=== PATIENT | female | born 1930 ===

== ENCOUNTER 2020-03-22 13:16 | Inpatient (IN) | payer MEDICARE, MEDICAID ==
[~2020-03-22 13:16] MED LIST: Iopamidol-370 76% 500 ML 1 ML ONE
[2020-03-22 13:50] LABS: #Basophils 0.1 thou/uL (0.0-0.2); #Lymphocytes 0.6 thou/uL (1.20-3.40); #Monocytes 0.5 thou/uL (0.11-0.59); #Neutrophils 13.1 thou/uL (1.40-6.50); %Basophils 0.4 % (0.0-1.0); %Eosinophils 0.1 % (0.0-10.0); %Lymphocytes 4.4 % (21.0-51.0); %Monocytes 3.2 % (0.0-10.0); Hemoglobin 10.9 g/dL (12.0-16.0); Mean Corpuscular HGB CONC 30.5 g/dL (32.0-36.0); Mean Corpuscular Hemoglobin 27.4 pg (27.0-31.0); Mean Corpuscular Volume 89.7 fL (78.0-98.0); Mean Platelet Volume 8.7 fL (7.4-10.4); Platelet Count 287 thou/uL (130-400); RBC Distribution Width 15.1 % (11.5-14.5); Red Blood Cell (RBC) Count 3.97 mill/uL (4.20-5.40); White Blood Cell (WBC) Count 14.2 thou/uL (4.8-10.8)
[2020-03-22 14:13] LABS: ALT (SGPT) 10 U/L (8-55); AST (SGOT) 20 U/L (5-34); Albumin 3.5 g/dL (3.4-4.8); Alkaline Phosphatase 72 U/L (40-110); Anion Gap 14 mmol/L (10-20); BUN (Urea Nitrogen) 20 mg/dL (9.8-20.1); Bilirubin, Total 0.9 mg/dL (0.2-1.2); Calc. Creatinine Clearance 0 mL/min (70-130); Calcium 9.8 mg/dL (7.8-10.44); Carbon Dioxide 28 mmol/L (23-31); Chloride 99 mmol/L (98-107); Globulin 3.5 g/dL (2.4-3.5); Glucose 85 mg/dL (83-110); Potassium 4.6 mmol/L (3.5-5.1); Sodium 136 mmol/L (136-145)
--- NOTE | 2020-03-22 14:18 | RAD ---
XR Chest 1 View Portable HISTORY: Fever COMPARISON: 01/18/2019 FINDINGS: The heart size is borderline but stable the aorta is tortuous. There are patchy opacities i n the right upper and midlung zones. No pneumothoraces or large effusions are seen. There are degenerative changes in the right shoulder joint. There are postop changes of median sternotomy. Ther e are postop changes in metallic hardware in the spine. IMPRESSION: Findings suspicious for right-sided pneumonia.
--- NOTE | 2020-03-22 14:21 | RAD ---
Exam: XR Tib Fib Lt Leg 2 View HISTORY: Fever, wound infection. Cellulitis. History of debridement. COMPARISON: None FINDINGS: There is diffuse osteopenia present. No fracture or dislocation is appreciated. Osteoarthritis is see n involving the knee. No osseous destruction is appreciated. Calcifications are seen in the subcutaneous soft tissues of the lower extremity. No other findings. IMPRESSION: 1. Osteopenia. 2. Osteoarthritis left knee. 3. No acute osseous abnormality. If there is concern for osteomyelitis, MRI with and without IV contr ast would be more sensitive study of choice for further evaluation. 4. Soft tissue calcifications.
[2020-03-22] MEDS ORDERED: Cefepime 2 GM VIAL ONE (14:30)
[2020-03-22] MEDS ORDERED: Vancomycin 1 GM/200 ML BAG ONE (14:53)
[2020-03-22 15:53] LABS: Bilirubin Negative (Negative); Blood, Urine Negative (Negative); Clarity Clear (Clear); Glucose, Urine (Dipstick) Normal (Negative); Ketone, Urine Negative (Negative); Leukocyte Negative Leu/uL (Negative); Nitrite Negative (Negative); Protein, Urine (Dipstick) Negative (Neg-Trace); Urobilinogen Normal mg/dL (Less than 2); pH, Urine 7.5 (5.0-9.0)
[2020-03-22 16:42] LABS: SARS-CoV-2 NAA Rapid Test Not Detected (NotDetected)
--- NOTE | 2020-03-22 18:27 | CT ---
CT PULMONARY ANGIOGRAM WITH IV CONTRAST AND 3D POSTPROCESSIN03/22/20 HISTORY: Shortness of breath. Tachypnea and fever and tachycardia. FINDINGS: There is good contrast opacification of the pulmonary artery vasculature without filling defects to s uggest pulmonary embolism. There are vascular calcifications. No evidence of thoracic aortic aneurysm or dissection is seen. No pleural or pericardial effusions are identified. There are chronic fibrotic changes in the lungs with a large bulla in the left lower lobe. No lobar c onsolidation or pneumothoraces are identified. There are degenerative changes in the spine. There are postop changes with metallic hardware in the spine. Upper abdominal tomograms demonstrate an indeter minate 2 cm exophytic mass arising from the right kidney. IMPRESSION: 1. No CT evidence of pulmonary embolism. 2. Right renal mass should be evaluated with ultrasound. POS: MATILDE
[2020-03-22] MEDS ORDERED: Ondansetron PF 4 MG/2 ML Vial IVP PRN (18:41)
[2020-03-22] MEDS ORDERED: Bisacodyl 5 MG TAB PO PRN (18:41)
--- NOTE | 2020-03-22 18:49 | PDOC.HHP ---
Hospitalist HPI Generalized weakness History of Present Illness: Patient is a pleasant 89-year-old lady who was seen in the emergency room on March 22, 2020. She is accompanied by her daughter, who was able to provide most of the history. Patient has chronic wound on the left lower extremity, for which she receives wound care. She was seen at wound care yesterday. She also receives home health. Today she had generalized weakness and was lethargic. No history of cough. She reportedly has a history of pulmonary fibrosis. In the emergency room, she was diagnosed with sepsis. Chest x-ray was suggestive of pneumonia. She has been referred to hospitalist service for further management. ED Course: BP: 147/80, MAP: 106, Pulse: 94, Resp: 28, Temp: 99.9 (Oral), O2 sat: 100 on (Room Air), Time: 03/22/2020 18:00. Allergies/Adverse Reactions: Allergy/AdvReac Type Severity Reaction Status Date / Time Penicillins Allergy Verified 03/22/20 18:41 Comments: Ventolin HFA WedMar 22, 2020 16:14 [place] [place] HFA aerosol inhaler : Strength - 90 mcg : INHALATION Patient Dose: Unknown. gabapentin WedMar 22, 2020 16:15 [place] [place] capsule : Strength - 300 mg : ORAL Patient Dose: 300 mg Oral once a day. hydroxychloroquine WedMar 22, 2020 16:27 [place] [place] tablet : Strength - 200 mg : ORAL Patient Dose: 1 tab(s) Oral once a day. Xarelto WedMar 22, 2020 16:27 [place] [place] tablet : Strength - 15 mg : ORAL Patient Dose: 15 mg Oral once a day. atorvastatin WedMar 22, 2020 16:28 [place] [place] tablet : Strength - 10 mg : ORAL Patient Dose: 10 mg Oral once a day (at bedtime). pantoprazole oral WedMar 22, 2020 16:28 [facility] [place] tablet,delayed release (DR/EC) : Strength - 40 mg : ORAL Patient Dose: 40 mg Oral once a day. losartan WedMar 22, 2020 16:29 [place] [place] tablet : Strength - 100 mg : ORAL Patient Dose: 100 mg Oral once a day. spironolactone WedMar 22, 2020 16:30 [place] [place] tablet : Strength - 25 mg : ORAL Patient Dose: 2 tab(s) Oral once a day. DULoxetine WedMar 22, 2020 16:30 [place] [place] capsule,delayed release(DR/EC) : Strength - 30 mg : ORAL Patient Dose: 30 mg Oral once a day. predniSONE WedMar 22, 2020 16:31 [place] [place] tablet : Strength - 5 mg : ORAL Patient Dose: 5 mg Oral once a day. HYDROcodone-acetaminophen WedMar 22, 2020 16:32 [place] [place] tablet : Strength - 10 mg-325 mg : ORAL Patient Dose: 1 tab(s) Oral every 8 hours PRN. Past History: Past medical history: Coronary artery disease, dyslipidemia, hypertension, pulmonary fibrosis and rheumatoid arthritis. Surgical history: Hip surgery, coronary artery bypass graft surgery and spinal surgery Social history: No history of tobacco use, alcohol use or recreational drug use Family history: No family history of premature coronary artery disease CODE STATUS: I discussed her CODE STATUS. She is DNR. Hospitalist HPI ROS Constitutional: reports: weakness Respiratory: reports: SOB with excertion. denies: cough, dry, shortness of breath, hemoptysis, pleuritic pain, sputum, wheezing Gastrointestinal: denies: nausea, vomiting, abdominal pain, diarrhea, constipation, melena, hematochezia Skin: reports: lesions All other systems reviewed; all pertinent +/- noted in HPI/Subj Hospitalist Exam General Appearance: awake alert Eye: anicteric sclera ENT: moist mucosa Neck: supple Heart: RRR Respiratory - other findings: Bilateral crackles Gastrointestinal: soft, non-tender Extremities: no cyanosis Skin - other findings: Leg wounds as documented Psychiatric: normal affect, normal behavior Hospitalist Results Result Diagrams: 03/22/20 13:33 03/22/20 13:33 Lab results: Laboratory Last Values WBC 14.2 thou/uL (4.8-10.8) H 03/22/20 13:33 RBC 3.97 mill/uL (4.20-5.40) L 03/22/20 13:33 Hgb 10.9 g/dL (12.0-16.0) L 03/22/20 13:33 Hct 35.6 % (36.0-47.0) L 03/22/20 13:33 MCV 89.7 fL (78.0-98.0) 03/22/20 13:33 MCH 27.4 pg (27.0-31.0) 03/22/20 13:33 MCHC 30.5 g/dL (32.0-36.0) L 03/22/20 13:33 RDW 15.1 % (11.5-14.5) H 03/22/20 13:33 Plt Count 287 thou/uL (130-400) 03/22/20 13:33 MPV 8.7 fL (7.4-10.4) 03/22/20 13:33 Neutrophils % 92.0 % (42.0-75.0) H 03/22/20 13:33 Lymphocytes % 4.4 % (21.0-51.0) L 03/22/20 13:33 Monocytes % 3.2 % (0.0-10.0) 03/22/20 13:33 Eosinophils % 0.1 % (0.0-10.0) 03/22/20 13:33 Basophils % 0.4 % (0.0-1.0) 03/22/20 13:33 Neutrophils # 13.1 thou/uL (1.40-6.50) H 03/22/20 13:33 Lymphocytes # 0.6 thou/uL (1.20-3.40) L 03/22/20 13:33 Monocytes # 0.5 thou/uL (0.11-0.59) 03/22/20 13:33 Eosinophils # 0.0 thou/uL (0.0-0.7) 03/22/20 13:33 Basophils # 0.1 thou/uL (0.0-0.2) 03/22/20 13:33 Sodium 136 mmol/L (136-145) 03/22/20 13:33 Potassium 4.6 mmol/L (3.5-5.1) 03/22/20 13:33 Chloride 99 mmol/L (98-107) 03/22/20 13:33 Carbon Dioxide 28 mmol/L (23-31) 03/22/20 13:33 Anion Gap 14 mmol/L (10-20) 03/22/20 13:33 BUN 20 mg/dL (9.8-20.1) 03/22/20 13:33 Creatinine 0.79 mg/dL (0.6-1.1) 03/22/20 13:33 Estimated GFR (MDRD) 69 03/22/20 13:33 Glucose 85 mg/dL (83-110) 03/22/20 13:33 Lactic Acid 1.5 mmol/L (0.5-2.2) 03/22/20 13:33 Calcium 9.8 mg/dL (7.8-10.44) 03/22/20 13:33 Total Bilirubin 0.9 mg/dL (0.2-1.2) 03/22/20 13:33 AST 20 U/L (5-34) 03/22/20 13:33 ALT 10 U/L (8-55) 03/22/20 13:33 Alkaline Phosphatase 72 U/L (40-110) 03/22/20 13:33 Serum Total Protein 7.0 g/dL (5.8-8.1) 03/22/20 13:33 Albumin 3.5 g/dL (3.4-4.8) 03/22/20 13:33 Globulin 3.5 g/dL (2.4-3.5) 03/22/20 13:33 Albumin/Globulin Ratio 1.0 g/dL (1.2-2.2) L 03/22/20 13:33 Urine Color Colorless (Yellow) 03/22/20 15:13 Urine Clarity Clear (Clear) 03/22/20 15:13 Urine pH 7.5 (5.0-9.0) 03/22/20 15:13 Ur Specific [place] 1.010 (1.002-1.036) 03/22/20 15:13 Urine Protein Negative mg/dL (Neg-Trace) 03/22/20 15:13 Urine Glucose (UA) Normal mg/dL (Negative) 03/22/20 15:13 Urine Ketones Negative mg/dL (Negative) 03/22/20 15:13 Urine Blood Negative (Negative) 03/22/20 15:13 Urine Nitrite Negative (Negative) 03/22/20 15:13 Urine Bilirubin Negative (Negative) 03/22/20 15:13 Urine Urobilinogen Normal mg/dL (Less than 2) 03/22/20 15:13 Ur Leukocyte Esterase Negative Marquis/uL (Negative) 03/22/20 15:13 Influenza A RNA INAAT Not Detected (NotDetected) 03/22/20 15:15 Influenza B RNA INAAT Not Detected (NotDetected) 03/22/20 15:15 SARS-CoV-2 Rap RNA(RT-PCR) Not Detected (NotDetected) 03/22/20 15:15 Chest x-ray Additional Comments: XR Chest 1 View Portable HISTORY: Fever COMPARISON: 01/18/2019 FINDINGS: The heart size is borderline but stable the aorta is tortuous. There are patchy opacities i n the right upper and midlung zones. No pneumothoraces or large effusions are seen. There are degenerative changes in the right shoulder joint. There are postop changes of median sternotomy. Ther e are postop changes in metallic hardware in the spine. IMPRESSION: Findings suspicious for right-sided pneumonia. Other Additional Comments: HISTORY: Fever, wound infection. Cellulitis. History of debridement. COMPARISON: None FINDINGS: There is diffuse osteopenia present. No fracture or dislocation is appreciated. Osteoarthritis is see n involving the knee. No osseous destruction is appreciated. Calcifications are seen in the subcutaneous soft tissues of the lower extremity. No other findings. IMPRESSION: 1. Osteopenia. 2. Osteoarthritis left knee. 3. No acute osseous abnormality. If there is concern for osteomyelitis, MRI with and without IV contr ast would be more sensitive study of choice for further evaluation. 4. Soft tissue calcifications. Hospitalist H&P A/P (1) Sepsis Code(s): A41.9 - SEPSIS, UNSPECIFIED ORGANISM Status: Acute (2) Pneumonia Code(s): J18.9 - PNEUMONIA, UNSPECIFIED ORGANISM Status: Acute (3) Wound infection Code(s): T14.8XXA - OTHER INJURY OF UNSPECIFIED BODY REGION, INITIAL ENCOUNTER; L08.9 - LOCAL INFECTION OF THE SKIN AND SUBCUTANEOUS TISSUE, UNSP Status: Acute (4) Coronary artery disease Code(s): I25.10 - ATHSCL HEART DISEASE OF [place] CORONARY ARTERY W/O ANG PCTRS Status: Chronic (5) Hypertension Code(s): I10 - ESSENTIAL (PRIMARY) HYPERTENSION Status: Chronic (6) Dyslipidemia Code(s): E78.5 - HYPERLIPIDEMIA, UNSPECIFIED Status: Chronic Plan: Continue cefepime and vancomycin. Follow cultures. Resume home medications once clarified. Monitor vital signs and titrate antihypertensives as needed. CT angiogram of the chest is pending, follow result. Consult wound care for wound management. Consult PT.
[2020-03-22] MEDS ORDERED: Morphine 2 MG/ML VIAL SLOW IVP PRN (22:27)
[2020-03-22] MEDS ORDERED: Albuterol Sulfate 2.5 mg/3 ml Neb NEB PRN (22:30)
[2020-03-22] MEDS: HYDROcodone/Acetaminophen 10/325 mg Tablet PO PRN (23:35)
[2020-03-23 06:12] LABS: #Lymphocytes 0.6 thou/uL (1.20-3.40); #Monocytes 0.2 thou/uL (0.11-0.59); #Neutrophils 8.2 thou/uL (1.40-6.50); %Basophils 0.3 % (0.0-1.0); %Eosinophils 0.4 % (0.0-10.0); %Lymphocytes 6.3 % (21.0-51.0); %Monocytes 2.1 % (0.0-10.0); %Neutrophils 90.9 % (42.0-75.0); Mean Corpuscular HGB CONC 31.1 g/dL (32.0-36.0); Mean Corpuscular Hemoglobin 27.9 pg (27.0-31.0); Mean Corpuscular Volume 89.8 fL (78.0-98.0); Mean Platelet Volume 8.8 fL (7.4-10.4); Platelet Count 222 thou/uL (130-400); RBC Distribution Width 15.2 % (11.5-14.5); Red Blood Cell (RBC) Count 3.58 mill/uL (4.20-5.40)
[2020-03-23 06:30] LABS: Anion Gap 14 mmol/L (10-20); BUN (Urea Nitrogen) 21 mg/dL (9.8-20.1); Calc. Creatinine Clearance 46 mL/min (70-130); Calcium 8.8 mg/dL (7.8-10.44); Carbon Dioxide 22 mmol/L (23-31); Chloride 103 mmol/L (98-107); Glucose 62 mg/dL (83-110); Potassium 3.9 mmol/L (3.5-5.1); Sodium 135 mmol/L (136-145)
[2020-03-23] MEDS: Vancomycin HCl 750 MG in Sodium Chloride 0.9% 250 ML 250 ML IVPB SCH (08:08)
[2020-03-23] MEDS ORDERED: Enoxaparin Sodium 40 MG/0.4 ML SYRINGE SC SCH (09:00)
[2020-03-23] MEDS: Cefepime 2 GM in Sodium Chloride 0.9% 100 ML IVPB SCH (14:16)
--- NOTE | 2020-03-23 16:37 | ULT ---
ULTRASOUND RETROPERITONEUM COMPLETE: (RENAL) DATE: 03/23/2020 HISTORY: 89-year-old female with right renal mass found on CT pulmonary angiogram yesterday FINDINGS: The right kidney measures 10 x 4.5 x 4 cm The left kidney measures 9.5 x 4.5 x 3 cm Both kidneys have normal parenchymal echogenicity. There is no hydronephrosis. There is a 2 x 2 x 2.2 cm exophytic pedunculated cyst arising from the cortical surface of right rivas l mid-upper pole, corresponding to the mass seen on chest CTA. Cursory images of the urinary bladder demonstrate no gross abnormality. IMPRESSION: 1. The right renal mass is a cyst. 2. Otherwise negative.
[2020-03-23] MEDS: Sodium Chloride 0.9% 1,000 ML IV SCH (16:50)
[2020-03-23] MEDS: Morphine 2 MG/ML VIAL SLOW IVP PRN (17:40)
--- NOTE | 2020-03-23 18:36 | PDOC.HOSPP ---
- Subjective Encounter Date: 03/23/20 Encounter Time: 11:30 Subjective: Patient seen in follow-up for sepsis. Reports feeling better. - Objective Vital Signs & Weight: Vital Signs (12 hours) Temp Pulse Resp BP BP Pulse Ox 03/23/20 12:00 98.2 F 74 20 165/66 H 99 03/23/20 08:00 97 03/23/20 07:57 97.9 F 72 18 159/68 H 97 Weight Admit Weight 116 lb 2 oz Weight 116 lb 2 oz Result Diagrams: 03/23/20 06:02 03/23/20 06:02 Additional Labs: I reviewed patient's labs and MAR Hospitalist ROS - Review of Systems Respiratory: reports: cough, dry Cardiovascular: denies: chest pain, palpitations, orthopnea, paroxysmal noc. dyspnea, edema, light headedness Gastrointestinal: denies: nausea, vomiting, abdominal pain, diarrhea, constipation, melena, hematochezia - Medication Medications: Active Medications Generic Name Dose Route Start Last Admin Trade Name Freq PRN Reason Stop Dose Admin Hydrocodone Bitart/Acetaminophen 1 tab 03/22/20 22:26 03/22/20 23:35 Hydrocodone/Acetaminophen 10/325 Mg Tablet PO 1 tab TID PRN Administration Pain Albuterol/Ipratropium 3 ml 03/22/20 22:26 03/22/20 23:35 Ipratropium/Albuterol Sulfate 3 Ml Neb NEB 3 ml [id number] PRN Administration SOB &/or Wheezing Vancomycin HCl 750 mg/ Sodium 250 mls @ 250 mls/hr 03/23/20 09:00 03/23/20 08:08 Chloride IVPB 250 mls Q24HR@0900 CARMEL Administration Cefepime HCl 2 gm/ Sodium 100 mls @ 200 mls/hr 03/23/20 14:00 03/23/20 14:16 Chloride IVPB 100 mls Q24HR@1400 CARMEL Administration Sodium Chloride 1,000 mls @ 50 mls/hr 03/23/20 15:45 03/23/20 16:50 Normal Saline 0.9% IV 1,000 mls .Q20H CARMEL Administration Morphine Sulfate 2 mg 03/23/20 10:44 03/23/20 17:40 Morphine 2 Mg/Ml Vial SLOW IVP 2 mg Q4H PRN Administration Pain Ondansetron HCl 4 mg 03/22/20 18:41 03/23/20 17:58 Ondansetron Pf 4 Mg/2 Ml Vial IVP 4 mg Q6H PRN Administration Nausea/Vomiting Sodium Chloride 10 ml 03/23/20 09:00 03/23/20 08:08 Flush - Normal Saline 10 Ml Syringe IVF 10 ml Q12HR CARMEL Administration Hospitalist Exam Vitals: Vital Signs (12 hours) Temp Pulse Resp BP BP Pulse Ox 03/23/20 12:00 98.2 F 74 20 165/66 H 99 03/23/20 08:00 97 03/23/20 07:57 97.9 F 72 18 159/68 H 97 Weight Admit Weight 116 lb 2 oz Weight 116 lb 2 oz General Appearance: NAD Eye: anicteric sclera ENT: normocephalic atraumatic Neck: supple Heart: RRR Respiratory - other findings: Bibasal crackles Gastrointestinal: soft, non-tender Skin: no rashes Psychiatric: normal affect, normal behavior Hosp A/P (1) Sepsis Code(s): A41.9 - SEPSIS, UNSPECIFIED ORGANISM Status: Acute (2) Pneumonia Code(s): J18.9 - PNEUMONIA, UNSPECIFIED ORGANISM Status: Acute (3) Wound infection Code(s): T14.8XXA - OTHER INJURY OF UNSPECIFIED BODY REGION, INITIAL ENCOUNTER; L08.9 - LOCAL INFECTION OF THE SKIN AND SUBCUTANEOUS TISSUE, UNSP Status: Acute (4) Coronary artery disease Code(s): I25.10 - ATHSCL HEART DISEASE OF [place] CORONARY ARTERY W/O ANG PCTRS Status: Chronic (5) Hypertension Code(s): I10 - ESSENTIAL (PRIMARY) HYPERTENSION Status: Chronic (6) Dyslipidemia Code(s): E78.5 - HYPERLIPIDEMIA, UNSPECIFIED Status: Chronic - Plan Continue cefepime and vancomycin. Follow cultures. Patient resumed. Monitor vital signs and titrate antihypertensives as needed. CT scan of chest shows renal mass, check renal ultrasound. Consulted wound care for wound management. PT consulted
[2020-03-23] MEDS: hydrALAZINE 20 MG/ML VIAL SLOW IVP PRN (21:00)
[2020-03-23] MEDS: Gabapentin 300 MG CAP PO SCH (21:04)
[2020-03-23] MEDS: Atorvastatin Calcium 10 MG TAB PO SCH (21:04)
[2020-03-23] MEDS: Spironolactone 25 MG TAB PO SCH ×2 (21:05→22:28)
[2020-03-23] MEDS: Hydroxychloroquine Sulfate 200 MG TAB PO SCH (21:05)
[2020-03-23] MEDS: HYDROcodone/Acetaminophen 10/325 mg Tablet PO PRN (21:43)
[2020-03-24] MEDS ORDERED: Amlodipine 5 MG TAB PO SCH (00:15)
[2020-03-24] MEDS: hydrALAZINE 20 MG/ML VIAL SLOW IVP PRN (05:44)
[2020-03-24 07:02] LABS: #Eosinphils 0.1 thou/uL (0.0-0.7); #Lymphocytes 1.1 thou/uL (1.20-3.40); #Monocytes 0.4 thou/uL (0.11-0.59); #Neutrophils 5.6 thou/uL (1.40-6.50); %Basophils 0.1 % (0.0-1.0); %Eosinophils 0.8 % (0.0-10.0); %Lymphocytes 15.2 % (21.0-51.0); %Monocytes 5.1 % (0.0-10.0); %Neutrophils 78.9 % (42.0-75.0); Hemoglobin 11.8 g/dL (12.0-16.0); Mean Corpuscular HGB CONC 29.9 g/dL (32.0-36.0); Mean Corpuscular Hemoglobin 26.9 pg (27.0-31.0); Mean Corpuscular Volume 89.9 fL (78.0-98.0); Mean Platelet Volume 9.2 fL (7.4-10.4); Platelet Count 233 thou/uL (130-400); RBC Distribution Width 15.2 % (11.5-14.5); White Blood Cell (WBC) Count 7.2 thou/uL (4.8-10.8)
[2020-03-24 07:18] LABS: Anion Gap 19 mmol/L (10-20); BUN (Urea Nitrogen) 15 mg/dL (9.8-20.1); Calc. Creatinine Clearance 55 mL/min (70-130); Calcium 9.1 mg/dL (7.8-10.44); Carbon Dioxide 17 mmol/L (23-31); Chloride 105 mmol/L (98-107); Sodium 137 mmol/L (136-145)
[2020-03-24 07:23] LABS: Glucose 57 mg/dL (83-110)
[2020-03-24 08:13] LABS: Vancomycin, Trough 16.3 ug/mL
[2020-03-24] MEDS: Losartan 25 MG TAB PO SCH (08:33)
[2020-03-24] MEDS: Fish Oil 1,000 MG CAP PO SCH (08:33)
[2020-03-24] MEDS: Ascorbic Acid 500 mg Chewable Tablet PO SCH (08:33)
[2020-03-24] MEDS: Calcium Carbonate 600 MG + Vit D TAB PO SCH (08:33)
[2020-03-24] MEDS: DULoxetine 30 MG CAP PO SCH (08:33)
[2020-03-24] MEDS: Cyanocobalamin (Vitamin B-12) 1,000 MCG TAB PO SCH (08:33)
[2020-03-24] MEDS: Magnesium Oxide 400 MG TAB PO SCH (08:34)
[2020-03-24] MEDS: Rivaroxaban 15 MG TAB PO SCH (08:34)
[2020-03-24] MEDS: Spironolactone 25 MG TAB PO SCH ×2 (08:35→20:25)
[2020-03-24] MEDS: Vancomycin HCl 750 MG in Sodium Chloride 0.9% 250 ML 250 ML IVPB SCH (10:29)
[2020-03-24] MEDS: Sodium Chloride 0.9% 1,000 ML IV SCH (11:59)
--- NOTE | 2020-03-24 13:00 | PDOC.HOSPP ---
- Subjective Encounter Date: 03/24/20 Encounter Time: 09:00 Subjective: Seen for follow-up regarding hypoxic respiratory failure. Feels better today. - Objective Vital Signs & Weight: Vital Signs (12 hours) Temp Pulse Resp BP BP BP Pulse Ox 03/24/20 07:40 97.5 F L 103 H 154/77 H 99 03/24/20 06:29 78 167/75 H 03/24/20 05:44 94 185/80 H 03/24/20 05:43 97.5 F L 94 18 185/80 H 98 03/24/20 01:00 94 173/86 H Weight Admit Weight 116 lb 2 oz Weight 116 lb 2 oz I&O: 03/23/20 03/24/20 03/25/20 06:59 06:59 06:59 Output Total 1000 Balance -1000 Result Diagrams: 03/24/20 06:50 03/24/20 06:50 Additional Labs: Accuchecks 03/24/20 08:12 POC Glucose 106 H Labs and MAR reviewed by nd Hospitalist ROS - Review of Systems Respiratory: reports: cough, dry Cardiovascular: denies: chest pain, palpitations, orthopnea, paroxysmal noc. dyspnea, edema, light headedness Gastrointestinal: denies: nausea, vomiting, abdominal pain, diarrhea, constipation, melena, hematochezia - Medication Medications: Active Medications Generic Name Dose Route Start Last Admin Trade Name Freq PRN Reason Stop Dose Admin Hydrocodone Bitart/Acetaminophen 1 tab 03/22/20 22:26 03/23/20 21:43 Hydrocodone/Acetaminophen 10/325 Mg Tablet PO 1 tab TID PRN Administration Pain Albuterol/Ipratropium 3 ml 03/22/20 22:26 03/22/20 23:35 Ipratropium/Albuterol Sulfate 3 Ml Neb NEB 3 ml [id number] PRN Administration SOB &/or Wheezing Ascorbic Acid 500 mg 03/24/20 09:00 03/24/20 08:33 Ascorbic Acid 500 Mg Chewable Tablet PO Not Given DAILY CARMEL Atorvastatin Calcium 5 mg 03/23/20 21:00 03/23/20 21:04 Atorvastatin Calcium 10 Mg Tab PO Not Given HS CARMEL Calcium/Vitamin D 1 tab 03/24/20 09:00 03/24/20 08:33 Calcium Carbonate 600 Mg + Vit D Tab PO Not Given DAILY [facility] Cyanocobalamin 1,000 mcg 03/24/20 09:00 03/24/20 08:33 Cyanocobalamin (Vitamin B-12) 1,000 Mcg Tab PO Not Given DAILY [facility] Duloxetine HCl 30 mg 03/24/20 09:00 03/24/20 08:33 Duloxetine 30 Mg Cap PO Not Given DAILY [facility] Fish Oil 1,000 mg 03/24/20 09:00 03/24/20 08:33 Fish Oil 1,000 Mg Cap PO Not Given DAILY [facility] Gabapentin 300 mg 03/23/20 21:00 03/23/20 21:04 Gabapentin 300 Mg Cap PO Not Given HS CARMEL Hydralazine HCl 10 mg 03/23/20 18:50 03/24/20 05:44 Hydralazine 20 Mg/Ml Vial SLOW IVP 10 mg Q6H PRN Administration SBP Greater Than 170 Hydroxychloroquine Sulfate 200 mg 03/23/20 21:00 03/23/20 21:05 Hydroxychloroquine Sulfate 200 Mg Tab PO Not Given HS CARMEL Vancomycin HCl 750 mg/ Sodium 250 mls @ 250 mls/hr 03/23/20 09:00 03/24/20 10:29 Chloride IVPB 250 mls Q24HR@0900 [facility]MEL Administration Cefepime HCl 2 gm/ Sodium 100 mls @ 200 mls/hr 03/23/20 14:00 03/23/20 14:16 Chloride IVPB 100 mls Q24HR@1400 [facility]MEL Administration Sodium Chloride 1,000 mls @ 50 mls/hr 03/23/20 15:45 03/24/20 11:59 Normal Saline 0.9% IV 1,000 mls .Q20H [facility]MEL Administration Losartan Potassium 100 mg 03/24/20 09:00 03/24/20 08:33 Losartan 25 Mg Tab PO Not Given DAILY [facility] Magnesium Oxide 400 mg 03/24/20 09:00 03/24/20 08:34 Magnesium Oxide 400 Mg Tab PO Not Given DAILY [facility] Morphine Sulfate 2 mg 03/23/20 10:44 03/23/20 17:40 Morphine 2 Mg/Ml Vial SLOW IVP 2 mg Q4H PRN Administration Pain Ondansetron HCl 4 mg 03/22/20 18:41 03/23/20 17:58 Ondansetron Pf 4 Mg/2 Ml Vial IVP 4 mg Q6H PRN Administration Nausea/Vomiting Pantoprazole Sodium 40 mg 03/24/20 09:00 03/24/20 08:34 Pantoprazole 40 Mg Tab PO Not Given DAILY [facility] Rivaroxaban 15 mg 03/24/20 09:00 03/24/20 08:34 Rivaroxaban 15 Mg Tab PO Not Given Q2DAYS [facility] Sodium Chloride 10 ml 03/23/20 09:00 03/24/20 08:35 Flush - Normal Saline 10 Ml Syringe IVF Not Given Q12HR [facility] Spironolactone 25 mg 03/23/20 21:00 03/24/20 08:35 Spironolactone 25 Mg Tab PO Not Given BID [facility] Hospitalist Exam Vitals: Vital Signs (12 hours) Temp Pulse Resp BP BP BP Pulse Ox 03/24/20 07:40 97.5 F L 103 H 154/77 H 99 03/24/20 06:29 78 167/75 H 03/24/20 05:44 94 185/80 H 03/24/20 05:43 97.5 F L 94 18 185/80 H 98 03/24/20 01:00 94 173/86 H Weight Admit Weight 116 lb 2 oz Weight 116 lb 2 oz General Appearance: awake alert ENT: normocephalic atraumatic Heart: RRR Respiratory: rhonchi Gastrointestinal: soft, non-tender Skin: no rashes Psychiatric: normal affect, normal behavior Hosp A/P (1) Acute respiratory failure with hypoxia Code(s): J96.01 - ACUTE RESPIRATORY FAILURE WITH HYPOXIA Status: Acute (2) Sepsis Code(s): A41.9 - SEPSIS, UNSPECIFIED ORGANISM Status: Acute (3) Pneumonia Code(s): J18.9 - PNEUMONIA, UNSPECIFIED ORGANISM Status: Acute (4) Wound infection Code(s): T14.8XXA - OTHER INJURY OF UNSPECIFIED BODY REGION, INITIAL ENCOUNTER; L08.9 - LOCAL INFECTION OF THE SKIN AND SUBCUTANEOUS TISSUE, UNSP Status: Acute (5) Coronary artery disease Code(s): I25.10 - ATHSCL HEART DISEASE OF [place] CORONARY ARTERY W/O ANG PCTRS Status: Chronic (6) Hypertension Code(s): I10 - ESSENTIAL (PRIMARY) HYPERTENSION Status: Chronic (7) Dyslipidemia Code(s): E78.5 - HYPERLIPIDEMIA, UNSPECIFIED Status: Chronic - Plan Continue cefepime and vancomycin. Follow cultures. Patient resumed. Monitor vital signs and titrate antihypertensives as needed. Renal ultrasound showed renal cyst on the left side. wound care for wound management. PT consulted
[2020-03-24] MEDS: HYDROcodone/Acetaminophen 10/325 mg Tablet PO PRN (13:06)
[2020-03-24] MEDS: Cefepime 2 GM in Sodium Chloride 0.9% 100 ML IVPB SCH (13:08)
[2020-03-24] MEDS ORDERED: guaiFENesin/DM ER PO SCH ×2 (14:45→21:00)
[2020-03-24] MEDS ORDERED: guaiFENesin ER 600 MG TAB PO SCH ×2 (16:15→21:00)
[2020-03-24] MEDS ORDERED: GUAIFENESIN SF SOLN 200 MG/10 ML UDCUP PO PRN (16:40)
[2020-03-24] MEDS: Atorvastatin Calcium 10 MG TAB PO SCH (20:25)
[2020-03-24] MEDS: Gabapentin 300 MG CAP PO SCH (20:26)
[2020-03-24] MEDS: Hydroxychloroquine Sulfate 200 MG TAB PO SCH (20:26)
[2020-03-25] MEDS: DULoxetine 30 MG CAP PO SCH (08:20)
[2020-03-25] MEDS: Ascorbic Acid 500 mg Chewable Tablet PO SCH (08:20)
[2020-03-25] MEDS: Losartan 25 MG TAB PO SCH (08:20)
[2020-03-25] MEDS: Cyanocobalamin (Vitamin B-12) 1,000 MCG TAB PO SCH (08:21)
[2020-03-25] MEDS: Sodium Chloride 0.9% 1,000 ML IV SCH (08:21)
[2020-03-25] MEDS: Spironolactone 25 MG TAB PO SCH ×2 (08:21→20:45)
[2020-03-25] MEDS: Magnesium Oxide 400 MG TAB PO SCH (08:21)
[2020-03-25] MEDS: Calcium Carbonate 600 MG + Vit D TAB PO SCH (08:21)
[2020-03-25] MEDS: Fish Oil 1,000 MG CAP PO SCH (08:21)
[2020-03-25] MEDS: Vancomycin HCl 750 MG in Sodium Chloride 0.9% 250 ML 250 ML IVPB SCH (09:58)
[2020-03-25 10:41] LABS: #Eosinphils 0.1 thou/uL (0.0-0.7); #Lymphocytes 0.9 thou/uL (1.20-3.40); #Monocytes 0.5 thou/uL (0.11-0.59); #Neutrophils 6.5 thou/uL (1.40-6.50); %Basophils 0.1 % (0.0-1.0); %Eosinophils 1.1 % (0.0-10.0); %Lymphocytes 11.7 % (21.0-51.0); %Monocytes 5.8 % (0.0-10.0); %Neutrophils 81.2 % (42.0-75.0); Hemoglobin 10.7 g/dL (12.0-16.0); Mean Corpuscular HGB CONC 31.8 g/dL (32.0-36.0); Mean Corpuscular Hemoglobin 28.8 pg (27.0-31.0); Mean Corpuscular Volume 90.6 fL (78.0-98.0); Platelet Count 232 thou/uL (130-400); RBC Distribution Width 15.1 % (11.5-14.5); Red Blood Cell (RBC) Count 3.73 mill/uL (4.20-5.40)
[2020-03-25 11:00] LABS: Anion Gap 11 mmol/L (10-20); BUN (Urea Nitrogen) 11 mg/dL (9.8-20.1); Calc. Creatinine Clearance 49 mL/min (70-130); Calcium 8.6 mg/dL (7.8-10.44); Carbon Dioxide 24 mmol/L (23-31); Chloride 108 mmol/L (98-107); Glucose 126 mg/dL (83-110); Potassium 3.6 mmol/L (3.5-5.1); Sodium 139 mmol/L (136-145)
[2020-03-25] MEDS: Cefepime 2 GM in Sodium Chloride 0.9% 100 ML IVPB SCH (14:34)
--- NOTE | 2020-03-25 17:04 | PDOC.HOSPP ---
- Subjective Encounter Date: 03/25/20 Encounter Time: 07:00 Subjective: Patient seen for follow-up for respiratory failure. Reports feeling better. - Objective Vital Signs & Weight: Vital Signs (12 hours) Temp Pulse Resp BP Pulse Ox 03/25/20 16:00 97.9 F 82 18 138/82 99 03/25/20 08:00 97.6 F 78 18 165/81 H 99 Weight Admit Weight 116 lb 2 oz Weight 116 lb 2 oz I&O: 03/24/20 03/25/20 03/26/20 06:59 06:59 06:59 Output Total 1000 Balance -1000 Result Diagrams: 03/25/20 10:22 03/25/20 10:22 Additional Labs: I reviewed patient's labs and MAR Hospitalist ROS - Review of Systems Respiratory: reports: cough, dry Gastrointestinal: denies: nausea, vomiting, abdominal pain, diarrhea, constipation, melena, hematochezia Genitourinary: denies: dysuria, frequency, incontinence, hematuria, retention - Medication Medications: Active Medications Generic Name Dose Route Start Last Admin Trade Name Freq PRN Reason Stop Dose Admin Hydrocodone Bitart/Acetaminophen 1 tab 03/22/20 22:26 03/24/20 13:06 Hydrocodone/Acetaminophen 10/325 Mg Tablet PO 1 tab TID PRN Administration Pain Albuterol/Ipratropium 3 ml 03/22/20 22:26 03/22/20 23:35 Ipratropium/Albuterol Sulfate 3 Ml Neb NEB 3 ml [id number] PRN Administration SOB &/or Wheezing Ascorbic Acid 500 mg 03/24/20 09:00 03/25/20 08:20 Ascorbic Acid 500 Mg Chewable Tablet PO 500 mg DAILY CARMEL Administration Atorvastatin Calcium 5 mg 03/23/20 21:00 03/24/20 20:25 Atorvastatin Calcium 10 Mg Tab PO 5 mg HS CARMEL Administration Calcium/Vitamin D 1 tab 03/24/20 09:00 03/25/20 08:21 Calcium Carbonate 600 Mg + Vit D Tab PO 1 tab DAILY CARMEL Administration Cyanocobalamin 1,000 mcg 03/24/20 09:00 03/25/20 08:21 Cyanocobalamin (Vitamin B-12) 1,000 Mcg Tab PO 1,000 mcg DAILY CARMEL Administration Duloxetine HCl 30 mg 03/24/20 09:00 03/25/20 08:20 Duloxetine 30 Mg Cap PO 30 mg DAILY CARMEL Administration Fish Oil 1,000 mg 03/24/20 09:00 03/25/20 08:21 Fish Oil 1,000 Mg Cap PO 1,000 mg DAILY CARMEL Administration Gabapentin 300 mg 03/23/20 21:00 03/24/20 20:26 Gabapentin 300 Mg Cap PO 300 mg HS CARMEL Administration Guaifenesin 600 mg 03/24/20 16:40 03/24/20 17:38 Guaifenesin Sf Soln 200 Mg/10 Ml Udcup PO 600 mg Q12H PRN Administration Cough Hydralazine HCl 10 mg 03/23/20 18:50 03/24/20 05:44 Hydralazine 20 Mg/Ml Vial SLOW IVP 10 mg Q6H PRN Administration SBP Greater Than 170 Hydroxychloroquine Sulfate 200 mg 03/23/20 21:00 03/24/20 20:26 Hydroxychloroquine Sulfate 200 Mg Tab PO 200 mg HS CARMEL Administration Vancomycin HCl 750 mg/ Sodium 250 mls @ 250 mls/hr 03/23/20 09:00 03/25/20 09:58 Chloride IVPB 250 mls Q24HR@0900 CARMEL Administration Cefepime HCl 2 gm/ Sodium 100 mls @ 200 mls/hr 03/23/20 14:00 03/25/20 14:34 Chloride IVPB 100 mls Q24HR@1400 CARMEL Administration Sodium Chloride 1,000 mls @ 50 mls/hr 03/23/20 15:45 03/25/20 08:21 Normal Saline 0.9% IV 1,000 mls .Q20H CARMEL Administration Losartan Potassium 100 mg 03/24/20 09:00 03/25/20 08:20 Losartan 25 Mg Tab PO 100 mg DAILY CARMEL Administration Magnesium Oxide 400 mg 03/24/20 09:00 03/25/20 08:21 Magnesium Oxide 400 Mg Tab PO 400 mg DAILY CARMEL Administration Morphine Sulfate 2 mg 03/23/20 10:44 03/23/20 17:40 Morphine 2 Mg/Ml Vial SLOW IVP 2 mg Q4H PRN Administration Pain Ondansetron HCl 4 mg 03/22/20 18:41 03/23/20 17:58 Ondansetron Pf 4 Mg/2 Ml Vial IVP 4 mg Q6H PRN Administration Nausea/Vomiting Pantoprazole Sodium 40 mg 03/24/20 09:00 03/25/20 08:21 Pantoprazole 40 Mg Tab PO 40 mg DAILY CARMEL Administration Rivaroxaban 15 mg 03/24/20 09:00 03/24/20 08:34 Rivaroxaban 15 Mg Tab PO Not Given Q2DAYS CARMEL Sodium Chloride 10 ml 03/23/20 09:00 03/25/20 08:21 Flush - Normal Saline 10 Ml Syringe IVF 10 ml Q12HR CARMEL Administration Spironolactone 25 mg 03/23/20 21:00 03/25/20 08:21 Spironolactone 25 Mg Tab PO 25 mg BID CARMEL Administration Hospitalist Exam Vitals: Vital Signs (12 hours) Temp Pulse Resp BP Pulse Ox 03/25/20 16:00 97.9 F 82 18 138/82 99 03/25/20 08:00 97.6 F 78 18 165/81 H 99 Weight Admit Weight 116 lb 2 oz Weight 116 lb 2 oz General Appearance: awake alert Eye: anicteric sclera ENT: moist mucosa Neck: supple Heart: RRR Respiratory: CTAB Gastrointestinal: soft, non-tender Skin: no rashes Psychiatric: normal affect, normal behavior Hosp A/P (1) Acute respiratory failure with hypoxia Code(s): J96.01 - ACUTE RESPIRATORY FAILURE WITH HYPOXIA Status: Acute (2) Sepsis Code(s): A41.9 - SEPSIS, UNSPECIFIED ORGANISM Status: Acute (3) Pneumonia Code(s): J18.9 - PNEUMONIA, UNSPECIFIED ORGANISM Status: Acute (4) Wound infection Code(s): T14.8XXA - OTHER INJURY OF UNSPECIFIED BODY REGION, INITIAL ENCOUNTER; L08.9 - LOCAL INFECTION OF THE SKIN AND SUBCUTANEOUS TISSUE, UNSP Status: Acute (5) Coronary artery disease Code(s): I25.10 - ATHSCL HEART DISEASE OF [place] CORONARY ARTERY W/O ANG PCTRS Status: Chronic (6) Hypertension Code(s): I10 - ESSENTIAL (PRIMARY) HYPERTENSION Status: Chronic (7) Dyslipidemia Code(s): E78.5 - HYPERLIPIDEMIA, UNSPECIFIED Status: Chronic - Plan Patient is clinically improving, leukocytosis has resolved. Continue cefepime and vancomycin. Wound culture grew pansensitive Pseudomonas. Monitor vital signs and titrate antihypertensives as needed. Renal ultrasound showed renal cyst on the left side. wound care following for wound management. PT recommends home with home health.
[2020-03-25] MEDS: Hydroxychloroquine Sulfate 200 MG TAB PO SCH (20:45)
[2020-03-25] MEDS: Gabapentin 300 MG CAP PO SCH (20:45)
[2020-03-25] MEDS: Atorvastatin Calcium 10 MG TAB PO SCH (20:45)
[2020-03-26 06:07] LABS: #Eosinphils 0.3 thou/uL (0.0-0.7); #Monocytes 0.5 thou/uL (0.11-0.59); #Neutrophils 5.5 thou/uL (1.40-6.50); %Basophils 0.6 % (0.0-1.0); %Eosinophils 3.7 % (0.0-10.0); %Lymphocytes 13.8 % (21.0-51.0); %Monocytes 6.9 % (0.0-10.0); Hemoglobin 10.6 g/dL (12.0-16.0); Mean Corpuscular HGB CONC 30.4 g/dL (32.0-36.0); Mean Corpuscular Hemoglobin 27.1 pg (27.0-31.0); Mean Corpuscular Volume 89.2 fL (78.0-98.0); Mean Platelet Volume 9.3 fL (7.4-10.4); Platelet Count 240 thou/uL (130-400); RBC Distribution Width 15.2 % (11.5-14.5); Red Blood Cell (RBC) Count 3.93 mill/uL (4.20-5.40); White Blood Cell (WBC) Count 7.3 thou/uL (4.8-10.8)
[2020-03-26 06:25] LABS: Anion Gap 11 mmol/L (10-20); BUN (Urea Nitrogen) 7 mg/dL (9.8-20.1); Calc. Creatinine Clearance 56 mL/min (70-130); Calcium 8.6 mg/dL (7.8-10.44); Carbon Dioxide 24 mmol/L (23-31); Chloride 107 mmol/L (98-107); Glucose 84 mg/dL (83-110); Potassium 3.4 mmol/L (3.5-5.1); Sodium 139 mmol/L (136-145)
[2020-03-26] MEDS: Sodium Chloride 0.9% 1,000 ML IV SCH ×2 (07:36→21:52)
[2020-03-26] MEDS: DULoxetine 30 MG CAP PO SCH (08:59)
[2020-03-26] MEDS: Ascorbic Acid 500 mg Chewable Tablet PO SCH ×2 (08:59→10:04)
[2020-03-26] MEDS: Calcium Carbonate 600 MG + Vit D TAB PO SCH (08:59)
[2020-03-26] MEDS: Fish Oil 1,000 MG CAP PO SCH ×2 (08:59→10:04)
[2020-03-26] MEDS: Losartan 25 MG TAB PO SCH (08:59)
[2020-03-26] MEDS: Cyanocobalamin (Vitamin B-12) 1,000 MCG TAB PO SCH (08:59)
[2020-03-26] MEDS: Magnesium Oxide 400 MG TAB PO SCH (09:00)
[2020-03-26] MEDS: Spironolactone 25 MG TAB PO SCH ×2 (09:00→21:52)
[2020-03-26] MEDS: Rivaroxaban 15 MG TAB PO SCH (09:00)
[2020-03-26] MEDS: Vancomycin HCl 750 MG in Sodium Chloride 0.9% 250 ML 250 ML IVPB SCH (10:04)
[2020-03-26] MEDS: hydrALAZINE 20 MG/ML VIAL SLOW IVP PRN (14:18)
[2020-03-26] MEDS: Cefepime 2 GM in Sodium Chloride 0.9% 100 ML IVPB SCH (15:03)
[2020-03-26] MEDS ORDERED: Potassium Chloride 20 MEQ TAB PO SCH (15:45)
--- NOTE | 2020-03-26 15:52 | PDOC.HOSPP ---
- Subjective Encounter Date: 03/26/20 Encounter Time: 15:00 Subjective: Patient seen in follow-up for hypoxic respiratory failure. Reports feeling better. - Objective Vital Signs & Weight: Vital Signs (12 hours) Temp Pulse Pulse Resp BP BP BP 03/26/20 14:38 77 134/72 03/26/20 13:30 177/84 H 03/26/20 11:37 97.8 F 78 18 185/82 H 03/26/20 08:00 98.3 F 84 15 160/70 H 03/26/20 04:00 97.7 F 78 18 155/83 H Pulse Ox Pulse Ox 03/26/20 14:38 95 03/26/20 13:30 03/26/20 11:37 95 03/26/20 08:00 96 03/26/20 04:00 100 Weight Admit Weight 116 lb 2 oz Weight 116 lb 2 oz I&O: 03/25/20 03/26/20 03/27/20 06:59 06:59 06:59 Output Total 900 Balance -900 Result Diagrams: 03/26/20 16:11 03/26/20 05:41 Additional Labs: Labs and MAR reviewed by dc Hospitalist ROS - Review of Systems Respiratory: reports: cough, dry, SOB with excertion Cardiovascular: denies: chest pain, palpitations, orthopnea, paroxysmal noc. dyspnea, edema, light headedness Gastrointestinal: denies: nausea, vomiting, abdominal pain, diarrhea, constipation, melena, hematochezia - Medication Medications: Active Medications Generic Name Dose Route Start Last Admin Trade Name Freq PRN Reason Stop Dose Admin Hydrocodone Bitart/Acetaminophen 1 tab 03/22/20 22:26 03/24/20 13:06 Hydrocodone/Acetaminophen 10/325 Mg Tablet PO 1 tab TID PRN Administration Pain Albuterol/Ipratropium 3 ml 03/22/20 22:26 03/22/20 23:35 Ipratropium/Albuterol Sulfate 3 Ml Neb NEB 3 ml [id number] PRN Administration SOB &/or Wheezing Ascorbic Acid 500 mg 03/24/20 09:00 03/26/20 10:04 Ascorbic Acid 500 Mg Chewable Tablet PO 500 mg DAILY CARMEL Administration Atorvastatin Calcium 5 mg 03/23/20 21:00 03/25/20 20:45 Atorvastatin Calcium 10 Mg Tab PO 5 mg HS CARMEL Administration Calcium/Vitamin D 1 tab 03/24/20 09:00 03/26/20 08:59 Calcium Carbonate 600 Mg + Vit D Tab PO 1 tab DAILY CARMEL Administration Cyanocobalamin 1,000 mcg 03/24/20 09:00 03/26/20 08:59 Cyanocobalamin (Vitamin B-12) 1,000 Mcg Tab PO 1,000 mcg DAILY CARMEL Administration Duloxetine HCl 30 mg 03/24/20 09:00 03/26/20 08:59 Duloxetine 30 Mg Cap PO 30 mg DAILY CARMEL Administration Fish Oil 1,000 mg 03/24/20 09:00 03/26/20 10:04 Fish Oil 1,000 Mg Cap PO 1,000 mg DAILY CARMEL Administration Gabapentin 300 mg 03/23/20 21:00 03/25/20 20:45 Gabapentin 300 Mg Cap PO 300 mg HS CARMEL Administration Guaifenesin 600 mg 03/24/20 16:40 03/24/20 17:38 Guaifenesin Sf Soln 200 Mg/10 Ml Udcup PO 600 mg Q12H PRN Administration Cough Hydralazine HCl 10 mg 03/23/20 18:50 03/26/20 14:18 Hydralazine 20 Mg/Ml Vial SLOW IVP 10 mg Q6H PRN Administration SBP Greater Than 170 Hydroxychloroquine Sulfate 200 mg 03/23/20 21:00 03/25/20 20:45 Hydroxychloroquine Sulfate 200 Mg Tab PO 200 mg HS CARMEL Administration Vancomycin HCl 750 mg/ Sodium 250 mls @ 250 mls/hr 03/23/20 09:00 03/26/20 10:04 Chloride IVPB 250 mls Q24HR@0900 CARMEL Administration Cefepime HCl 2 gm/ Sodium 100 mls @ 200 mls/hr 03/23/20 14:00 03/26/20 15:03 Chloride IVPB 100 mls Q24HR@1400 CARMEL Administration Sodium Chloride 1,000 mls @ 50 mls/hr 03/23/20 15:45 03/26/20 07:36 Normal Saline 0.9% IV Not Given .Q20H CARMEL Losartan Potassium 100 mg 03/24/20 09:00 03/26/20 08:59 Losartan 25 Mg Tab PO 100 mg DAILY CARMEL Administration Magnesium Oxide 400 mg 03/24/20 09:00 03/26/20 09:00 Magnesium Oxide 400 Mg Tab PO 400 mg DAILY CARMEL Administration Morphine Sulfate 2 mg 03/23/20 10:44 03/23/20 17:40 Morphine 2 Mg/Ml Vial SLOW IVP 2 mg Q4H PRN Administration Pain Ondansetron HCl 4 mg 03/22/20 18:41 03/23/20 17:58 Ondansetron Pf 4 Mg/2 Ml Vial IVP 4 mg Q6H PRN Administration Nausea/Vomiting Pantoprazole Sodium 40 mg 03/24/20 09:00 03/26/20 10:04 Pantoprazole 40 Mg Tab PO 40 mg DAILY CARMEL Administration Rivaroxaban 15 mg 03/24/20 09:00 03/26/20 09:00 Rivaroxaban 15 Mg Tab PO 15 mg Q2DAYS CARMEL Administration Sodium Chloride 10 ml 03/23/20 09:00 03/26/20 10:31 Flush - Normal Saline 10 Ml Syringe IVF Not Given Q12HR CARMEL Spironolactone 25 mg 03/23/20 21:00 03/26/20 09:00 Spironolactone 25 Mg Tab PO 25 mg BID CARMEL Administration Hospitalist Exam Vitals: Vital Signs (12 hours) Temp Pulse Pulse Resp BP BP BP 03/26/20 14:38 77 134/72 03/26/20 13:30 177/84 H 03/26/20 11:37 97.8 F 78 18 185/82 H 03/26/20 08:00 98.3 F 84 15 160/70 H 03/26/20 04:00 97.7 F 78 18 155/83 H Pulse Ox Pulse Ox 03/26/20 14:38 95 03/26/20 13:30 03/26/20 11:37 95 03/26/20 08:00 96 03/26/20 04:00 100 Weight Admit Weight 116 lb 2 oz Weight 116 lb 2 oz General Appearance: awake alert Eye: anicteric sclera ENT: moist mucosa Neck: supple Heart: RRR Respiratory: rhonchi Gastrointestinal: non-tender Skin: no lesions Psychiatric: normal affect Hosp A/P (1) Acute respiratory failure with hypoxia Code(s): J96.01 - ACUTE RESPIRATORY FAILURE WITH HYPOXIA Status: Acute (2) Sepsis Code(s): A41.9 - SEPSIS, UNSPECIFIED ORGANISM Status: Acute (3) Pneumonia Code(s): J18.9 - PNEUMONIA, UNSPECIFIED ORGANISM Status: Acute (4) Wound infection Code(s): T14.8XXA - OTHER INJURY OF UNSPECIFIED BODY REGION, INITIAL ENCOUNTER; L08.9 - LOCAL INFECTION OF THE SKIN AND SUBCUTANEOUS TISSUE, UNSP Status: Acute (5) Coronary artery disease Code(s): I25.10 - ATHSCL HEART DISEASE OF [place] CORONARY ARTERY W/O ANG PCTRS Status: Chronic (6) Hypertension Code(s): I10 - ESSENTIAL (PRIMARY) HYPERTENSION Status: Chronic (7) Dyslipidemia Code(s): E78.5 - HYPERLIPIDEMIA, UNSPECIFIED Status: Chronic - Plan Patient reportedly had some blood in the stool. Stool occult test is positive. However, hemoglobin is stable. Trend hemoglobin. Will most likely need follow- up as outpatient. Patient is clinically improving, leukocytosis has resolved. Patient reports early closure with penicillin. Fluoroquinolones and Plaquenil have interaction, prolonging QT interval. Discontinue vancomycin, continue cefepime. Wound culture grew pansensitive Pseudomonas. Monitor vital signs and titrate antihypertensives as needed. Renal ultrasound showed renal cyst on the left side. wound care following for wound management. Disposition: PT recommends home with home health.
[2020-03-26 16:24] LABS: Hemoglobin 11.5 g/dL (12.0-16.0)
[2020-03-26] MEDS: Morphine 2 MG/ML VIAL SLOW IVP PRN (16:45)
[2020-03-26] MEDS ORDERED: Doxycycline 100 MG CAP PO SCH (21:00)
[2020-03-26] MEDS: HYDROcodone/Acetaminophen 10/325 mg Tablet PO PRN (21:51)
[2020-03-26] MEDS: Gabapentin 300 MG CAP PO SCH (21:52)
[2020-03-26] MEDS: Hydroxychloroquine Sulfate 200 MG TAB PO SCH (21:52)
[2020-03-26] MEDS: Atorvastatin Calcium 10 MG TAB PO SCH (21:52)
[2020-03-27 05:49] LABS: #Eosinphils 0.3 thou/uL (0.0-0.7); #Lymphocytes 1.2 thou/uL (1.20-3.40); #Monocytes 0.5 thou/uL (0.11-0.59); #Neutrophils 4.7 thou/uL (1.40-6.50); %Basophils 0.2 % (0.0-1.0); %Eosinophils 3.8 % (0.0-10.0); %Lymphocytes 17.6 % (21.0-51.0); %Neutrophils 70.4 % (42.0-75.0); Hemoglobin 9.8 g/dL (12.0-16.0); Mean Corpuscular HGB CONC 29.7 g/dL (32.0-36.0); Mean Corpuscular Hemoglobin 26.5 pg (27.0-31.0); Mean Corpuscular Volume 89.2 fL (78.0-98.0); Platelet Count 237 thou/uL (130-400); RBC Distribution Width 15.3 % (11.5-14.5); White Blood Cell (WBC) Count 6.7 thou/uL (4.8-10.8)
[2020-03-27 05:53] LABS: Anion Gap 10 mmol/L (10-20); BUN (Urea Nitrogen) 12 mg/dL (9.8-20.1); Calc. Creatinine Clearance 57 mL/min (70-130); Calcium 8.6 mg/dL (7.8-10.44); Carbon Dioxide 23 mmol/L (23-31); Chloride 107 mmol/L (98-107); Glucose 79 mg/dL (83-110); Potassium 4.1 mmol/L (3.5-5.1); Sodium 136 mmol/L (136-145)
[2020-03-27] MEDS: Losartan 25 MG TAB PO SCH (08:35)
[2020-03-27] MEDS: DULoxetine 30 MG CAP PO SCH (08:35)
[2020-03-27] MEDS: Ascorbic Acid 500 mg Chewable Tablet PO SCH (08:35)
[2020-03-27] MEDS: Fish Oil 1,000 MG CAP PO SCH (08:35)
[2020-03-27] MEDS: Spironolactone 25 MG TAB PO SCH ×2 (08:36→21:07)
[2020-03-27] MEDS: Cyanocobalamin (Vitamin B-12) 1,000 MCG TAB PO SCH (08:36)
--- NOTE | 2020-03-27 17:38 | PDOC.HOSPP ---
- Subjective Encounter Date: 03/27/20 Encounter Time: 14:00 Subjective: Patient seen in follow-up for acute hypoxic respiratory failure. She reports feeling better. Shortness of breath is improved. - Objective Vital Signs & Weight: Vital Signs (12 hours) Temp Pulse Resp BP Pulse Ox 03/27/20 13:00 97.7 F 95 20 151/72 H 96 03/27/20 08:00 97.3 F L 100 15 167/82 H 92 L Weight Admit Weight 116 lb 2 oz Weight 116 lb 2 oz I&O: 03/26/20 03/27/20 03/28/20 06:59 06:59 06:59 Intake Total 440 Output Total 900 Balance -900 440 Result Diagrams: 03/27/20 05:27 03/27/20 05:27 Additional Labs: I reviewed patient's labs and MAR Hospitalist ROS - Review of Systems Respiratory: reports: SOB with excertion Cardiovascular: denies: chest pain, palpitations, orthopnea, paroxysmal noc. dyspnea, edema, light headedness Gastrointestinal: denies: nausea, vomiting, abdominal pain, diarrhea, constipation, melena, hematochezia - Medication Medications: Active Medications Generic Name Dose Route Start Last Admin Trade Name Freq PRN Reason Stop Dose Admin Hydrocodone Bitart/Acetaminophen 1 tab 03/22/20 22:26 03/26/20 21:51 Hydrocodone/Acetaminophen 10/325 Mg Tablet PO 1 tab TID PRN Administration Pain Albuterol/Ipratropium 3 ml 03/22/20 22:26 03/22/20 23:35 Ipratropium/Albuterol Sulfate 3 Ml Neb NEB 3 ml [id number] PRN Administration SOB &/or Wheezing Ascorbic Acid 500 mg 03/24/20 09:00 03/27/20 08:35 Ascorbic Acid 500 Mg Chewable Tablet PO 500 mg DAILY CARMEL Administration Atorvastatin Calcium 5 mg 03/23/20 21:00 03/26/20 21:52 Atorvastatin Calcium 10 Mg Tab PO 5 mg HS CARMEL Administration Cyanocobalamin 1,000 mcg 03/24/20 09:00 03/27/20 08:36 Cyanocobalamin (Vitamin B-12) 1,000 Mcg Tab PO 1,000 mcg DAILY CARMEL Administration Duloxetine HCl 30 mg 03/24/20 09:00 03/27/20 08:35 Duloxetine 30 Mg Cap PO 30 mg DAILY CARMEL Administration Fish Oil 1,000 mg 03/24/20 09:00 03/27/20 08:35 Fish Oil 1,000 Mg Cap PO 1,000 mg DAILY CARMEL Administration Gabapentin 300 mg 03/23/20 21:00 03/26/20 21:52 Gabapentin 300 Mg Cap PO 300 mg HS CARMEL Administration Guaifenesin 600 mg 03/24/20 16:40 03/24/20 17:38 Guaifenesin Sf Soln 200 Mg/10 Ml Udcup PO 600 mg Q12H PRN Administration Cough Hydralazine HCl 10 mg 03/23/20 18:50 03/26/20 14:18 Hydralazine 20 Mg/Ml Vial SLOW IVP 10 mg Q6H PRN Administration SBP Greater Than 170 Sodium Chloride 1,000 mls @ 50 mls/hr 03/23/20 15:45 03/26/20 21:52 Normal Saline 0.9% IV 1,000 mls .Q20H CARMEL Administration Losartan Potassium 100 mg 03/24/20 09:00 03/27/20 08:35 Losartan 25 Mg Tab PO 100 mg DAILY CARMEL Administration Morphine Sulfate 2 mg 03/23/20 10:44 03/26/20 16:45 Morphine 2 Mg/Ml Vial SLOW IVP 2 mg Q4H PRN Administration Pain Pantoprazole Sodium 40 mg 03/24/20 09:00 03/27/20 08:35 Pantoprazole 40 Mg Tab PO 40 mg DAILY CARMEL Administration Rivaroxaban 15 mg 03/24/20 09:00 03/26/20 09:00 Rivaroxaban 15 Mg Tab PO 15 mg Q2DAYS CARMEL Administration Sodium Chloride 10 ml 03/23/20 09:00 03/27/20 08:36 Flush - Normal Saline 10 Ml Syringe IVF 10 ml Q12HR CARMEL Administration Spironolactone 25 mg 03/23/20 21:00 03/27/20 08:36 Spironolactone 25 Mg Tab PO 25 mg BID CARMEL Administration Hospitalist Exam Vitals: Vital Signs (12 hours) Temp Pulse Resp BP Pulse Ox 03/27/20 13:00 97.7 F 95 20 151/72 H 96 03/27/20 08:00 97.3 F L 100 15 167/82 H 92 L Weight Admit Weight 116 lb 2 oz Weight 116 lb 2 oz General Appearance: awake alert Eye: anicteric sclera ENT: moist mucosa Neck: supple Heart: RRR Respiratory: CTAB Gastrointestinal: soft, non-tender Skin: no rashes Psychiatric: normal affect, normal behavior Hosp A/P (1) Acute respiratory failure with hypoxia Code(s): J96.01 - ACUTE RESPIRATORY FAILURE WITH HYPOXIA Status: Acute (2) Sepsis Code(s): A41.9 - SEPSIS, UNSPECIFIED ORGANISM Status: Acute (3) Pneumonia Code(s): J18.9 - PNEUMONIA, UNSPECIFIED ORGANISM Status: Acute (4) Wound infection Code(s): T14.8XXA - OTHER INJURY OF UNSPECIFIED BODY REGION, INITIAL ENCOUNTER; L08.9 - LOCAL INFECTION OF THE SKIN AND SUBCUTANEOUS TISSUE, UNSP Status: Acute (5) Coronary artery disease Code(s): I25.10 - ATHSCL HEART DISEASE OF [place] CORONARY ARTERY W/O ANG PCTRS Status: Chronic (6) Hypertension Code(s): I10 - ESSENTIAL (PRIMARY) HYPERTENSION Status: Chronic (7) Dyslipidemia Code(s): E78.5 - HYPERLIPIDEMIA, UNSPECIFIED Status: Chronic - Plan Discontinue cefepime, start levofloxacin. Hold Plaquenil because of QT prolongation. Patient reportedly had some blood in the stool. Stool occult test is positive. However, hemoglobin is stable. Trend hemoglobin. Will most likely need follow- up as outpatient. Patient is clinically improving, leukocytosis has resolved. Monitor vital signs and titrate antihypertensives as needed. Patient's daughter updated over the telephone. Likely home in 24 to 48 hours.
[2020-03-27] MEDS: HYDROcodone/Acetaminophen 10/325 mg Tablet PO PRN (17:52)
[2020-03-27] MEDS: Sodium Chloride 0.9% 1,000 ML IV SCH (21:04)
[2020-03-27] MEDS: Atorvastatin Calcium 10 MG TAB PO SCH (21:04)
[2020-03-27] MEDS: Gabapentin 300 MG CAP PO SCH (21:07)
[2020-03-27] MEDS: Morphine 2 MG/ML VIAL SLOW IVP PRN (21:08)
[2020-03-28] MEDS: HYDROcodone/Acetaminophen 10/325 mg Tablet PO PRN (10:15)
[2020-03-28] MEDS: Losartan 25 MG TAB PO SCH (10:15)
[2020-03-28] MEDS: Cyanocobalamin (Vitamin B-12) 1,000 MCG TAB PO SCH (10:16)
[2020-03-28] MEDS: Fish Oil 1,000 MG CAP PO SCH (10:16)
[2020-03-28] MEDS: Ascorbic Acid 500 mg Chewable Tablet PO SCH (10:16)
[2020-03-28] MEDS: DULoxetine 30 MG CAP PO SCH (10:17)
[2020-03-28] MEDS: Rivaroxaban 15 MG TAB PO SCH (10:17)
[2020-03-28] MEDS: Spironolactone 25 MG TAB PO SCH ×2 (10:18→20:24)
[2020-03-28] MEDS ORDERED: Promethazine HCl 25 MG/ML VIAL IM/IV PRN (16:01)
[2020-03-28] MEDS ORDERED: Furosemide 40 MG/4 ML VIAL SLOW IVP SCH ×2 (16:15→19:00)
[2020-03-28] MEDS: Sodium Chloride 0.9% 1,000 ML IV SCH (17:09)
[2020-03-28] MEDS: Morphine 2 MG/ML VIAL SLOW IVP PRN ×2 (18:01→23:01)
[2020-03-28 18:13] LABS: Hemoglobin 10.7 g/dL (12.0-16.0); Mean Corpuscular HGB CONC 31.7 g/dL (32.0-36.0); Mean Corpuscular Hemoglobin 28.2 pg (27.0-31.0); Mean Corpuscular Volume 88.9 fL (78.0-98.0); Mean Platelet Volume 9.2 fL (7.4-10.4); Platelet Count 257 thou/uL (130-400); White Blood Cell (WBC) Count 26.2 thou/uL (4.8-10.8)
[2020-03-28] MEDS ORDERED: Vancomycin 1 GM in Premix Bag 1 BAG IVPB SCH (18:15)
[2020-03-28] MEDS ORDERED: Furosemide 40 MG/4 ML VIAL ONE (18:22)
[2020-03-28 18:25] LABS: Anion Gap 16 mmol/L (10-20); BUN (Urea Nitrogen) 12 mg/dL (9.8-20.1); Calc. Creatinine Clearance 50 mL/min (70-130); Carbon Dioxide 20 mmol/L (23-31); Chloride 100 mmol/L (98-107); Glucose 100 mg/dL (83-110); Potassium 3.7 mmol/L (3.5-5.1); Sodium 132 mmol/L (136-145)
--- NOTE | 2020-03-28 18:31 | RAD ---
PORTABLE CHEST: 03/28/20 PROVIDED CLINICAL HISTORY: Shortness of breath. FINDINGS: Comparison 03/22/20. The examination was performed with the patient markedly kyphotic. The lungs are hypoinflated. There i s accentuation of the pulmonary bronchovascular markings. There is right hemithoracic air space disea se suspected. Blunting of the costophrenic angles may be present through this is not well evaluated. There is no definite evidence for pneumothorax. IMPRESSION: Limited exam. POS: CHRISTA
[2020-03-28 18:34] LABS: Anisocytosis SLIGHT = 6-15 cells (100X) (0-5/hpf); Band 24 % (5-11); Elliptocytes SLIGHT = 2-5 cells (100X) (0-1/hpf); Hypochromia SLIGHT = 6-15 cells (100X) (0-5/hpf); Lymphocytes 1 % (21-51); MDiff Complete? YES; Monocytes 5 % (0-10); Neutrophil 70 % (42-75); Ovalocytes SLIGHT = 2-5 cells (100X) (0-1/hpf); Platelet Morphology Comment Appears Adequate; Polychromasia SLIGHT = 2-3 cells (100X) (0-2/hpf); Schistocytes SLIGHT = 2-5 cells (100X) (0-1/hpf); Target Cells SLIGHT = 2-5 cells (100X) (0-1/hpf)
--- NOTE | 2020-03-28 19:01 | PDOC.HOSPP ---
- Subjective Encounter Date: 03/28/20 Encounter Time: 18:58 Subjective: Patient seen for follow-up for pneumonia. She is short of breath, tachypneic. - Objective Vital Signs & Weight: Vital Signs (12 hours) Temp Pulse Resp BP Pulse Ox 03/28/20 13:00 98.6 F 96 19 172/74 H 94 L 03/28/20 09:00 98.5 F 102 H 20 178/82 H 94 L 03/28/20 08:00 96 03/28/20 07:54 97.8 F 94 17 157/69 H 98 Weight Admit Weight 116 lb 2 oz Weight 116 lb 2 oz I&O: 03/27/20 03/28/20 03/29/20 06:59 06:59 06:59 Intake Total 1510 560 Output Total 1300 700 Balance 210 -140 Result Diagrams: 03/28/20 17:56 03/28/20 17:56 Additional Labs: Labs and MAR reviewed by [place] Hospitalist ROS - Review of Systems Respiratory: reports: cough, dry, shortness of breath Cardiovascular: denies: chest pain, palpitations, orthopnea, paroxysmal noc. dyspnea, edema, light headedness - Medication Medications: Active Medications Generic Name Dose Route Start Last Admin Trade Name Freq PRN Reason Stop Dose Admin Hydrocodone Bitart/Acetaminophen 1 tab 03/22/20 22:26 03/28/20 10:15 Hydrocodone/Acetaminophen 10/325 Mg Tablet PO 1 tab TID PRN Administration Pain Albuterol/Ipratropium 3 ml 03/22/20 22:26 03/22/20 23:35 Ipratropium/Albuterol Sulfate 3 Ml Neb NEB 3 ml [id number] PRN Administration SOB &/or Wheezing Ascorbic Acid 500 mg 03/24/20 09:00 03/28/20 10:16 Ascorbic Acid 500 Mg Chewable Tablet PO 500 mg DAILY CARMEL Administration Atorvastatin Calcium 5 mg 03/23/20 21:00 03/27/20 21:04 Atorvastatin Calcium 10 Mg Tab PO 5 mg HS CARMEL Administration Cyanocobalamin 1,000 mcg 03/24/20 09:00 03/28/20 10:16 Cyanocobalamin (Vitamin B-12) 1,000 Mcg Tab PO 1,000 mcg DAILY CARMEL Administration Duloxetine HCl 30 mg 03/24/20 09:00 03/28/20 10:17 Duloxetine 30 Mg Cap PO 30 mg DAILY CARMEL Administration Fish Oil 1,000 mg 03/24/20 09:00 03/28/20 10:16 Fish Oil 1,000 Mg Cap PO Not Given DAILY CARMEL Gabapentin 300 mg 03/23/20 21:00 03/27/20 21:07 Gabapentin 300 Mg Cap PO 300 mg HS CARMEL Administration Guaifenesin 600 mg 03/24/20 16:40 03/24/20 17:38 Guaifenesin Sf Soln 200 Mg/10 Ml Udcup PO 600 mg Q12H PRN Administration Cough Hydralazine HCl 10 mg 03/23/20 18:50 03/26/20 14:18 Hydralazine 20 Mg/Ml Vial SLOW IVP 10 mg Q6H PRN Administration SBP Greater Than 170 Levofloxacin 500 mg 03/28/20 06:00 03/28/20 06:01 Levofloxacin 500 Mg Tab PO 500 mg 0600 CARMEL Administration Losartan Potassium 100 mg 03/24/20 09:00 03/28/20 10:15 Losartan 25 Mg Tab PO 100 mg DAILY CARMEL Administration Morphine Sulfate 2 mg 03/23/20 10:44 03/28/20 18:01 Morphine 2 Mg/Ml Vial SLOW IVP 2 mg Q4H PRN Administration Pain Pantoprazole Sodium 40 mg 03/24/20 09:00 03/28/20 10:20 Pantoprazole 40 Mg Tab PO 40 mg DAILY CARMEL Administration Rivaroxaban 15 mg 03/24/20 09:00 03/28/20 10:17 Rivaroxaban 15 Mg Tab PO 15 mg Q2DAYS CARMEL Administration Sodium Chloride 10 ml 03/23/20 09:00 03/28/20 10:18 Flush - Normal Saline 10 Ml Syringe IVF Not Given Q12HR CARMEL Spironolactone 25 mg 03/23/20 21:00 03/28/20 10:18 Spironolactone 25 Mg Tab PO 25 mg BID CARMEL Administration Hospitalist Exam Vitals: Vital Signs (12 hours) Temp Pulse Resp BP Pulse Ox 03/28/20 13:00 98.6 F 96 19 172/74 H 94 L 03/28/20 09:00 98.5 F 102 H 20 178/82 H 94 L 03/28/20 08:00 96 03/28/20 07:54 97.8 F 94 17 157/69 H 98 Weight Admit Weight 116 lb 2 oz Weight 116 lb 2 oz General Appearance: awake alert Eye: anicteric sclera ENT: moist mucosa Neck: supple Heart - other findings: S1, S2, regular and tachycardic Respiratory: tachypneic Respiratory - other findings: Right-sided bronchial breathing Gastrointestinal: soft, non-tender Skin: no rashes Psychiatric: normal affect Hosp A/P (1) Acute respiratory failure with hypoxia Code(s): J96.01 - ACUTE RESPIRATORY FAILURE WITH HYPOXIA Status: Acute (2) Sepsis Code(s): A41.9 - SEPSIS, UNSPECIFIED ORGANISM Status: Acute (3) Pneumonia Code(s): J18.9 - PNEUMONIA, UNSPECIFIED ORGANISM Status: Acute (4) Wound infection Code(s): T14.8XXA - OTHER INJURY OF UNSPECIFIED BODY REGION, INITIAL ENCOUNTER; L08.9 - LOCAL INFECTION OF THE SKIN AND SUBCUTANEOUS TISSUE, UNSP Status: Acute (5) Coronary artery disease Code(s): I25.10 - ATHSCL HEART DISEASE OF [place] CORONARY ARTERY W/O ANG PCTRS Status: Chronic (6) Hypertension Code(s): I10 - ESSENTIAL (PRIMARY) HYPERTENSION Status: Chronic (7) Dyslipidemia Code(s): E78.5 - HYPERLIPIDEMIA, UNSPECIFIED Status: Chronic - Plan Patient has worsening pneumonia on the right side. Discontinue levofloxacin, start vancomycin, cefepime and metronidazole. Patient has been nauseous. Patient also received intravenous furosemide for possible volume overload. I discussed with patient's daughter by the bedside. They do not wish for BiPAP, intubation or mechanical ventilation. This was conveyed to the night team.
[2020-03-28] MEDS ORDERED: Promethazine HCl 25 MG in Sodium Chloride 0.9% 50 ML IVPB PRN (19:32)
[2020-03-28] MEDS: Vancomycin HCl 750 MG in Sodium Chloride 0.9% 250 ML 250 ML IVPB SCH (20:20)
[2020-03-28] MEDS: Acetaminophen 325 MG TAB PO PRN (20:22)
[2020-03-28] MEDS: Atorvastatin Calcium 10 MG TAB PO SCH (20:24)
[2020-03-28] MEDS: Cefepime 2 GM in Sodium Chloride 0.9% 100 ML IVPB SCH (22:14)
[2020-03-28] MEDS: metroNIDAZOLE 500 MG in Premix Bag 1 BAG IVPB SCH (22:15)
[2020-03-28] MEDS: Gabapentin 300 MG CAP PO SCH (22:15)
[2020-03-29] MEDS: metroNIDAZOLE 500 MG in Premix Bag 1 BAG IVPB SCH ×2 (05:06→13:33)
[2020-03-29 06:10] LABS: Anion Gap 14 mmol/L (10-20); BUN (Urea Nitrogen) 20 mg/dL (9.8-20.1); Calc. Creatinine Clearance 32 mL/min (70-130); Calcium 8.9 mg/dL (7.8-10.44); Carbon Dioxide 22 mmol/L (23-31); Chloride 101 mmol/L (98-107); Glucose 89 mg/dL (83-110); Potassium 3.9 mmol/L (3.5-5.1); Sodium 133 mmol/L (136-145)
[2020-03-29 07:07] LABS: Hemoglobin 10.6 g/dL (12.0-16.0); Mean Corpuscular HGB CONC 31.2 g/dL (32.0-36.0); Mean Corpuscular Hemoglobin 28.5 pg (27.0-31.0); Mean Corpuscular Volume 91.4 fL (78.0-98.0); Mean Platelet Volume 9.3 fL (7.4-10.4); Platelet Count 212 thou/uL (130-400); RBC Distribution Width 15.9 % (11.5-14.5); Red Blood Cell (RBC) Count 3.73 mill/uL (4.20-5.40); White Blood Cell (WBC) Count 32.1 thou/uL (4.8-10.8)
[2020-03-29 07:51] LABS: Band 26 % (5-11); Elliptocytes SLIGHT = 2-5 cells (100X) (0-1/hpf); Lymphocytes 6 % (21-51); MDiff Complete? YES; Monocytes 8 % (0-10); Neutrophil 60 % (42-75); Ovalocytes SLIGHT = 2-5 cells (100X) (0-1/hpf); Platelet Morphology Comment Appears Adequate; Polychromasia SLIGHT = 2-3 cells (100X) (0-2/hpf)
[2020-03-29] MEDS: Losartan 25 MG TAB PO SCH (08:48)
[2020-03-29] MEDS: DULoxetine 30 MG CAP PO SCH (08:51)
[2020-03-29] MEDS: Cyanocobalamin (Vitamin B-12) 1,000 MCG TAB PO SCH (08:51)
[2020-03-29] MEDS: Spironolactone 25 MG TAB PO SCH ×2 (08:51→20:53)
[2020-03-29] MEDS: Ascorbic Acid 500 mg Chewable Tablet PO SCH (08:52)
[2020-03-29] MEDS: Fish Oil 1,000 MG CAP PO SCH (08:52)
[2020-03-29] MEDS: Morphine 2 MG/ML VIAL SLOW IVP PRN (13:29)
--- NOTE | 2020-03-29 13:42 | PDOC.HOSPP ---
- Subjective Encounter Date: 03/29/20 Encounter Time: 07:00 Subjective: Follow-up for hypoxic respiratory failure. She reports feeling better. - Objective Vital Signs & Weight: Vital Signs (12 hours) Temp Pulse Pulse Pulse Resp BP BP 03/29/20 11:58 98.0 F 98 18 03/29/20 09:10 88 90 128/64 149/76 H 03/29/20 09:00 97.6 F 84 23 H 03/29/20 08:00 03/29/20 07:51 97.6 F 84 23 H 03/29/20 05:39 97.2 F L 87 16 BP BP Pulse Ox Pulse Ox Pulse Ox 03/29/20 11:58 177/79 H 98 03/29/20 09:10 100 100 03/29/20 09:00 147/79 H 97 03/29/20 08:00 97 03/29/20 07:51 147/79 H 97 03/29/20 05:39 155/79 H 100 Weight Admit Weight 116 lb 2 oz Weight 115 lb I&O: 03/28/20 03/29/20 03/30/20 06:59 06:59 06:59 Intake Total 1510 560 Output Total 1300 1200 Balance 210 -640 Result Diagrams: 03/29/20 04:55 03/29/20 04:55 Additional Labs: I reviewed patient's labs and MANJULA Hospitalist ROS - Review of Systems Respiratory: reports: SOB with excertion Cardiovascular: denies: chest pain, palpitations, orthopnea, paroxysmal noc. dyspnea, edema, light headedness Gastrointestinal: denies: nausea, vomiting, abdominal pain, diarrhea, constipation, melena, hematochezia - Medication Medications: Active Medications Generic Name Dose Route Start Last Admin Trade Name Freq PRN Reason Stop Dose Admin Acetaminophen 650 mg 03/22/20 18:41 03/28/20 20:22 Acetaminophen 325 Mg Tab PO 650 mg Q4H PRN Administration Headache/Fever/Mild Pain (1-3) Hydrocodone Bitart/Acetaminophen 1 tab 03/22/20 22:26 03/28/20 10:15 Hydrocodone/Acetaminophen 10/325 Mg Tablet PO 1 tab TID PRN Administration Pain Albuterol/Ipratropium 3 ml 03/22/20 22:26 03/22/20 23:35 Ipratropium/Albuterol Sulfate 3 Ml Neb NEB 3 ml [id number] PRN Administration SOB &/or Wheezing Ascorbic Acid 500 mg 03/24/20 09:00 03/29/20 08:52 Ascorbic Acid 500 Mg Chewable Tablet PO 500 mg DAILY CARMEL Administration Atorvastatin Calcium 5 mg 03/23/20 21:00 03/28/20 20:24 Atorvastatin Calcium 10 Mg Tab PO 5 mg HS CARMEL Administration Cyanocobalamin 1,000 mcg 03/24/20 09:00 03/29/20 08:51 Cyanocobalamin (Vitamin B-12) 1,000 Mcg Tab PO 1,000 mcg DAILY CARMEL Administration Duloxetine HCl 30 mg 03/24/20 09:00 03/29/20 08:51 Duloxetine 30 Mg Cap PO 30 mg DAILY CARMEL Administration Fish Oil 1,000 mg 03/24/20 09:00 03/29/20 08:52 Fish Oil 1,000 Mg Cap PO Not Given DAILY CARMEL Gabapentin 300 mg 03/23/20 21:00 03/28/20 22:15 Gabapentin 300 Mg Cap PO 300 mg HS CARMEL Administration Guaifenesin 600 mg 03/24/20 16:40 03/24/20 17:38 Guaifenesin Sf Soln 200 Mg/10 Ml Udcup PO 600 mg Q12H PRN Administration Cough Hydralazine HCl 10 mg 03/23/20 18:50 03/26/20 14:18 Hydralazine 20 Mg/Ml Vial SLOW IVP 10 mg Q6H PRN Administration SBP Greater Than 170 Cefepime HCl 2 gm/ Sodium 100 mls @ 200 mls/hr 03/28/20 21:00 03/28/20 22:14 Chloride IVPB 100 mls 2100 CARMEL Administration Metronidazole 500 mg/ Device 100 mls @ 100 mls/hr 03/28/20 22:00 03/29/20 05:06 IVPB 100 mls Q8HR CARMEL Administration Vancomycin HCl 750 mg/ Sodium 250 mls @ 250 mls/hr 03/28/20 20:00 03/28/20 20:20 Chloride IVPB 250 mls 2000 CARMEL Administration Levofloxacin 500 mg 03/28/20 06:00 03/29/20 05:07 Levofloxacin 500 Mg Tab PO 500 mg 0600 CARMEL Administration Losartan Potassium 100 mg 03/24/20 09:00 03/29/20 08:48 Losartan 25 Mg Tab PO 100 mg DAILY CARMEL Administration Morphine Sulfate 2 mg 03/23/20 10:44 03/28/20 23:01 Morphine 2 Mg/Ml Vial SLOW IVP 2 mg Q4H PRN Administration Pain Pantoprazole Sodium 40 mg 03/24/20 09:00 03/29/20 08:51 Pantoprazole 40 Mg Tab PO 40 mg DAILY CARMEL Administration Rivaroxaban 15 mg 03/24/20 09:00 03/28/20 10:17 Rivaroxaban 15 Mg Tab PO 15 mg Q2DAYS CARMEL Administration Sodium Chloride 10 ml 03/23/20 09:00 03/29/20 08:52 Flush - Normal Saline 10 Ml Syringe IVF 10 ml Q12HR CARMEL Administration Spironolactone 25 mg 03/23/20 21:00 03/29/20 08:51 Spironolactone 25 Mg Tab PO 25 mg BID CARMEL Administration Hospitalist Exam Vitals: Vital Signs (12 hours) Temp Pulse Pulse Pulse Resp BP BP 03/29/20 11:58 98.0 F 98 18 03/29/20 09:10 88 90 128/64 149/76 H 03/29/20 09:00 97.6 F 84 23 H 03/29/20 08:00 03/29/20 07:51 97.6 F 84 23 H 03/29/20 05:39 97.2 F L 87 16 BP BP Pulse Ox Pulse Ox Pulse Ox 03/29/20 11:58 177/79 H 98 03/29/20 09:10 100 100 03/29/20 09:00 147/79 H 97 03/29/20 08:00 97 03/29/20 07:51 147/79 H 97 03/29/20 05:39 155/79 H 100 Weight Admit Weight 116 lb 2 oz Weight 115 lb General Appearance: awake alert Eye: anicteric sclera ENT: moist mucosa Neck: supple Heart: RRR Respiratory - other findings: Right-sided bronchial breathing Gastrointestinal: soft, non-tender Skin: no rashes Psychiatric: normal affect, normal behavior Hosp A/P (1) Acute respiratory failure with hypoxia Code(s): J96.01 - ACUTE RESPIRATORY FAILURE WITH HYPOXIA Status: Acute (2) Sepsis Code(s): A41.9 - SEPSIS, UNSPECIFIED ORGANISM Status: Acute (3) Pneumonia Code(s): J18.9 - PNEUMONIA, UNSPECIFIED ORGANISM Status: Acute (4) Wound infection Code(s): T14.8XXA - OTHER INJURY OF UNSPECIFIED BODY REGION, INITIAL ENCOUNTER; L08.9 - LOCAL INFECTION OF THE SKIN AND SUBCUTANEOUS TISSUE, UNSP Status: Acute (5) Coronary artery disease Code(s): I25.10 - ATHSCL HEART DISEASE OF [place] CORONARY ARTERY W/O ANG PCTRS Status: Chronic (6) Hypertension Code(s): I10 - ESSENTIAL (PRIMARY) HYPERTENSION Status: Chronic (7) Dyslipidemia Code(s): E78.5 - HYPERLIPIDEMIA, UNSPECIFIED Status: Chronic - Plan Patient is a pleasant 89-year-old lady who was admitted to the hospital on March 22, 2020 for acute hypoxic respiratory failure. Chest x-ray showed right-sided pneumonia. CT angiogram of the chest did not show any evidence of pulmonary embolism. It was suggestive of a right renal mass. However, ultrasound demonstrated that this was infected renal cyst. She was treated with broad-spectrum intravenous antibiotics for pneumonia. She also has a foot wound, culture grew pansensitive Pseudomonas. Her antibiotics were transitioned to levofloxacin after holding her Plaquenil. Dilated, she was found to be in respiratory distress. Chest x-ray done on March 28 showed right-sided pneumonia which was worse when compared to the initial chest x-ray from March 22. She was started back on vancomycin and cefepime, metronidazole was added for possible aspiration. Levofloxacin was discontinued. She showed improvement on March 29, 2020. Continue vancomycin, cefepime and Flagyl. Hyponatremia mild, likely asymptomatic. Plaquenil is on hold, resume Plaquenil. Continue Lipitor 5 mg at bedtime for dyslipidemia. Renal function is stable.
[2020-03-29] MEDS: Vancomycin HCl 750 MG in Sodium Chloride 0.9% 250 ML 250 ML IVPB SCH (20:50)
[2020-03-29] MEDS: Hydroxychloroquine Sulfate 200 MG TAB PO SCH (20:50)
[2020-03-29] MEDS: Atorvastatin Calcium 10 MG TAB PO SCH (20:51)
[2020-03-29] MEDS: Gabapentin 300 MG CAP PO SCH (20:51)
[2020-03-29] MEDS: Cefepime 2 GM in Sodium Chloride 0.9% 100 ML IVPB SCH (20:52)
[2020-03-30] MEDS: metroNIDAZOLE 500 MG in Premix Bag 1 BAG IVPB SCH ×4 (01:10→16:33)
[2020-03-30] MEDS: Spironolactone 25 MG TAB PO SCH ×2 (08:21→20:46)
[2020-03-30] MEDS: DULoxetine 30 MG CAP PO SCH (08:21)
[2020-03-30] MEDS: Ascorbic Acid 500 mg Chewable Tablet PO SCH (08:21)
[2020-03-30] MEDS: Cyanocobalamin (Vitamin B-12) 1,000 MCG TAB PO SCH (08:21)
[2020-03-30] MEDS: Fish Oil 1,000 MG CAP PO SCH (08:21)
[2020-03-30] MEDS: Losartan 25 MG TAB PO SCH (08:26)
[2020-03-30] MEDS: Rivaroxaban 15 MG TAB PO SCH (08:28)
--- NOTE | 2020-03-30 16:33 | PDOC.HOSPP ---
- Subjective Encounter Date: 03/30/20 Encounter Time: 16:32 Subjective: F/u: leukocytosis The patient has no cough, shortness of breath or chest pain. She has no dysuria. She has had five episodes of loose diarrhea since restarting antibiotics yesterday. Daughter states patient has chronic crackles from pulmonary fibrosis - Objective Vital Signs & Weight: Vital Signs (12 hours) Temp Pulse Resp BP Pulse Ox 03/30/20 08:00 100 03/30/20 07:54 97.4 F L 88 18 108/61 100 Weight Admit Weight 116 lb 2 oz Weight 114 lb 15.255 oz I&O: 03/29/20 03/30/20 03/31/20 06:59 06:59 06:59 Intake Total 560 774 720 Output Total 1200 700 Balance -640 74 720 Result Diagrams: 03/29/20 04:55 03/29/20 04:55 Hospitalist ROS - Review of Systems Constitutional: denies: fever, chills - Medication Medications: Active Medications Generic Name Dose Route Start Last Admin Trade Name Freq PRN Reason Stop Dose Admin Acetaminophen 650 mg 03/22/20 18:41 03/28/20 20:22 Acetaminophen 325 Mg Tab PO 650 mg Q4H PRN Administration Headache/Fever/Mild Pain (1-3) Hydrocodone Bitart/Acetaminophen 1 tab 03/22/20 22:26 03/28/20 10:15 Hydrocodone/Acetaminophen 10/325 Mg Tablet PO 1 tab TID PRN Administration Pain Ascorbic Acid 500 mg 03/24/20 09:00 03/30/20 08:21 Ascorbic Acid 500 Mg Chewable Tablet PO 500 mg DAILY CARMEL Administration Atorvastatin Calcium 5 mg 03/23/20 21:00 03/29/20 20:51 Atorvastatin Calcium 10 Mg Tab PO 5 mg HS CARMEL Administration Cyanocobalamin 1,000 mcg 03/24/20 09:00 03/30/20 08:21 Cyanocobalamin (Vitamin B-12) 1,000 Mcg Tab PO 1,000 mcg DAILY CARMEL Administration Duloxetine HCl 30 mg 03/24/20 09:00 03/30/20 08:21 Duloxetine 30 Mg Cap PO 30 mg DAILY CARMEL Administration Fish Oil 1,000 mg 03/24/20 09:00 03/30/20 08:21 Fish Oil 1,000 Mg Cap PO 1,000 mg DAILY CARMEL Administration Gabapentin 300 mg 03/23/20 21:00 03/29/20 20:51 Gabapentin 300 Mg Cap PO 300 mg HS CARMEL Administration Guaifenesin 600 mg 03/24/20 16:40 03/24/20 17:38 Guaifenesin Sf Soln 200 Mg/10 Ml Udcup PO 600 mg Q12H PRN Administration Cough Hydralazine HCl 10 mg 03/23/20 18:50 03/26/20 14:18 Hydralazine 20 Mg/Ml Vial SLOW IVP 10 mg Q6H PRN Administration SBP Greater Than 170 Hydroxychloroquine Sulfate 200 mg 03/29/20 21:00 03/29/20 20:50 Hydroxychloroquine Sulfate 200 Mg Tab PO Not Given HS CARMEL Cefepime HCl 2 gm/ Sodium 100 mls @ 200 mls/hr 03/28/20 21:00 03/29/20 20:52 Chloride IVPB 100 mls 2100 CARMEL Administration Vancomycin HCl 750 mg/ Sodium 250 mls @ 250 mls/hr 03/28/20 20:00 03/29/20 20:50 Chloride IVPB 250 mls 2000 CARMEL Administration Metronidazole 500 mg/ Device 100 mls @ 100 mls/hr 03/30/20 01:00 03/30/20 08:22 IVPB 100 mls 0100,0900,1700 CARMEL Administration Levofloxacin 500 mg 03/28/20 06:00 03/30/20 05:55 Levofloxacin 500 Mg Tab PO 500 mg 0600 CARMEL Administration Losartan Potassium 100 mg 03/24/20 09:00 03/30/20 08:26 Losartan 25 Mg Tab PO 100 mg DAILY CARMEL Administration Morphine Sulfate 2 mg 03/23/20 10:44 03/29/20 13:29 Morphine 2 Mg/Ml Vial SLOW IVP 2 mg Q4H PRN Administration Pain Pantoprazole Sodium 40 mg 03/24/20 09:00 03/30/20 08:21 Pantoprazole 40 Mg Tab PO 40 mg DAILY CARMEL Administration Rivaroxaban 15 mg 03/24/20 09:00 03/30/20 08:28 Rivaroxaban 15 Mg Tab PO 15 mg Q2DAYS CARMEL Administration Sodium Chloride 10 ml 03/23/20 09:00 03/30/20 08:37 Flush - Normal Saline 10 Ml Syringe IVF 10 ml Q12HR CARMEL Administration Spironolactone 25 mg 03/23/20 21:00 03/30/20 08:21 Spironolactone 25 Mg Tab PO 25 mg BID CARMEL Administration Hospitalist Exam Vitals: Vital Signs (12 hours) Temp Pulse Resp BP Pulse Ox 03/30/20 08:00 100 03/30/20 07:54 97.4 F L 88 18 108/61 100 Weight Admit Weight 116 lb 2 oz Weight 114 lb 15.255 oz General Appearance: NAD, awake alert Eye: PERRL, anicteric sclera ENT: normocephalic atraumatic, no oropharyngeal lesions Neck: no JVD Heart: RRR, no murmur, no gallops, no rubs Respiratory - other findings: tachypneic, right lower lobe crackles, mild rhonchi Gastrointestinal: soft, non-tender, non-distended Extremities: no cyanosis, no clubbing, no edema Skin: normal turgor, no lesions, no rashes Neurological: cranial nerve grossly intact, normal sensation to touch, no weakness, no focal deficits, no new deficit Musculoskeletal: normal tone, normal strength, no muscle wasting Musculoskeletal - other findings: LLE ulcer with dressing Hosp A/P - Plan Tib fib x ray 03/22: osteopenia, osteoarthritis left knee. Chest X ray 03/22: right sided pneumonia CTA chest: right renal mass Renal US: right renal cyst ChesT X ray 03/28: limited This is an 89 year old female who is sent to the hospital for generalized weakness and lethargy. She does not have a temp of 99.9 and was tachycardic. She is a chronic wound on her left lower extremity. Has been to the hospital for sepsis Sepsis secondary to left lower extremity cellulitis versus pneumonia - wound culture of her left wound shows Pseudomonas aeruginosa. Blood cultures are negative. Urine culture is negative. Chest x-ray shows a right lower lobe pneumonia -She was on vancomycin and cefepime from 03/23-03/26. Antibiotics were discontinued and restarted on 03/28 (vanc, cefepime, flagyl and levaquin) . She is on plaquenil for history of rheumatoid arthritis - WBC is increasing to 32, however no issues with oxygenation from a pneumonia standpoint and cellulitis looks unremarkable. I will check C diff given her diarrhea - will consult ID Hyponatremia - sodium 133, will monitor Anemia - Hb 10.6 Right renal cyst - outpatient follow up Pulmonary fibrosis - continue close monitoring Rheumatoid arthritis - on plaquenil
[2020-03-30 20:43] LABS: Vancomycin, Trough 17.9 ug/mL
[2020-03-30] MEDS: Atorvastatin Calcium 10 MG TAB PO SCH (20:45)
[2020-03-30] MEDS: Hydroxychloroquine Sulfate 200 MG TAB PO SCH (20:45)
[2020-03-30] MEDS: Gabapentin 300 MG CAP PO SCH (20:46)
[2020-03-30] MEDS: Cefepime 2 GM in Sodium Chloride 0.9% 100 ML IVPB SCH (20:47)
[2020-03-30] MEDS: HYDROcodone/Acetaminophen 10/325 mg Tablet PO PRN (20:52)
[2020-03-30 21:17] LABS: Bilirubin Negative (Negative); Blood, Urine Negative (Negative); Clarity Turbid (Clear); Glucose, Urine (Dipstick) Normal (Negative); Ketone, Urine Negative (Negative); Leukocyte 250 Leu/uL (Negative); Nitrite Negative (Negative); Protein, Urine (Dipstick) 50 mg/dL (Neg-Trace); RBC/HPF 0-3 HPF (0-3); Specific Gravity, Urine 1.023 (1.002-1.036); Urobilinogen Normal mg/dL (Less than 2)
[2020-03-30 21:18] LABS: Bacteria/HPF 1+ HPF (None Seen)
[2020-03-30 21:19] LABS: Urine Culture Reflex No No
[2020-03-30] MEDS: Vancomycin HCl 750 MG in Sodium Chloride 0.9% 250 ML 250 ML IVPB SCH (21:46)
[2020-03-30] MEDS ORDERED: Vancomycin HCl 500 MG in Sodium Chloride 0.9% 100 ML IVPB SCH (22:00)
[2020-03-31] MEDS: metroNIDAZOLE 500 MG in Premix Bag 1 BAG IVPB SCH ×3 (01:07→18:12)
[2020-03-31] MEDS: Losartan 25 MG TAB PO SCH (08:20)
[2020-03-31] MEDS: Fish Oil 1,000 MG CAP PO SCH (08:21)
[2020-03-31] MEDS: DULoxetine 30 MG CAP PO SCH (08:21)
[2020-03-31] MEDS: Spironolactone 25 MG TAB PO SCH ×2 (08:21→21:52)
[2020-03-31] MEDS: Cyanocobalamin (Vitamin B-12) 1,000 MCG TAB PO SCH (08:21)
[2020-03-31] MEDS: Ascorbic Acid 500 mg Chewable Tablet PO SCH (08:21)
[2020-03-31 09:50] LABS: Hemoglobin 9.9 g/dL (12.0-16.0); Mean Corpuscular HGB CONC 31.5 g/dL (32.0-36.0); Mean Corpuscular Hemoglobin 28.5 pg (27.0-31.0); Mean Corpuscular Volume 90.5 fL (78.0-98.0); Mean Platelet Volume 8.7 fL (7.4-10.4); Platelet Count 242 thou/uL (130-400); RBC Distribution Width 15.7 % (11.5-14.5); Red Blood Cell (RBC) Count 3.47 mill/uL (4.20-5.40); White Blood Cell (WBC) Count 14.6 thou/uL (4.8-10.8)
[2020-03-31 10:03] LABS: Anion Gap 10 mmol/L (10-20); BUN (Urea Nitrogen) 17 mg/dL (9.8-20.1); Calc. Creatinine Clearance 55 mL/min (70-130); Calcium 8.8 mg/dL (7.8-10.44); Carbon Dioxide 22 mmol/L (23-31); Chloride 107 mmol/L (98-107); Glucose 92 mg/dL (83-110); Potassium 3.7 mmol/L (3.5-5.1); Sodium 135 mmol/L (136-145)
--- NOTE | 2020-03-31 15:13 | PDOC.HOSPP ---
- Subjective Encounter Date: 03/31/20 Encounter Time: 13:00 Subjective: F/u: leukocytosis, pneumonia The patient denies significant cough or shortness of breath. Patient's other daughter was in the room today, states that patient has no interest in eating and does not like the pureed diet. She was asking about changing her to a solid diet and understands the risks of aspiration The patient has no abdominal pain, nausea or vomiting . The patient has not had liquid stools today but did yesterday per daughter - Objective Vital Signs & Weight: Vital Signs (12 hours) Temp Pulse Resp BP Pulse Ox 03/31/20 08:14 97.9 F 87 22 H 175/91 H 99 Weight Admit Weight 116 lb 2 oz Weight 114 lb 15.255 oz I&O: 03/30/20 03/31/20 04/01/20 06:59 06:59 06:59 Intake Total 774 960 Output Total 700 Balance 74 960 Result Diagrams: 03/31/20 09:36 03/31/20 09:36 Hospitalist ROS - Review of Systems Constitutional: denies: fever, chills - Medication Medications: Active Medications Generic Name Dose Route Start Last Admin Trade Name Freq PRN Reason Stop Dose Admin Acetaminophen 650 mg 03/22/20 18:41 03/28/20 20:22 Acetaminophen 325 Mg Tab PO 650 mg Q4H PRN Administration Headache/Fever/Mild Pain (1-3) Hydrocodone Bitart/Acetaminophen 1 tab 03/22/20 22:26 03/30/20 20:52 Hydrocodone/Acetaminophen 10/325 Mg Tablet PO 1 tab TID PRN Administration Pain Ascorbic Acid 500 mg 03/24/20 09:00 03/31/20 08:21 Ascorbic Acid 500 Mg Chewable Tablet PO 500 mg DAILY CARMEL Administration Atorvastatin Calcium 5 mg 03/23/20 21:00 03/30/20 20:45 Atorvastatin Calcium 10 Mg Tab PO 5 mg HS CARMEL Administration Cyanocobalamin 1,000 mcg 03/24/20 09:00 03/31/20 08:21 Cyanocobalamin (Vitamin B-12) 1,000 Mcg Tab PO 1,000 mcg DAILY CARMEL Administration Duloxetine HCl 30 mg 03/24/20 09:00 03/31/20 08:21 Duloxetine 30 Mg Cap PO 30 mg DAILY CARMEL Administration Fish Oil 1,000 mg 03/24/20 09:00 03/31/20 08:21 Fish Oil 1,000 Mg Cap PO 1,000 mg DAILY CARMEL Administration Gabapentin 300 mg 03/23/20 21:00 03/30/20 20:46 Gabapentin 300 Mg Cap PO 300 mg HS CARMEL Administration Guaifenesin 600 mg 03/24/20 16:40 03/24/20 17:38 Guaifenesin Sf Soln 200 Mg/10 Ml Udcup PO 600 mg Q12H PRN Administration Cough Hydralazine HCl 10 mg 03/23/20 18:50 03/26/20 14:18 Hydralazine 20 Mg/Ml Vial SLOW IVP 10 mg Q6H PRN Administration SBP Greater Than 170 Hydroxychloroquine Sulfate 200 mg 03/29/20 21:00 03/30/20 20:45 Hydroxychloroquine Sulfate 200 Mg Tab PO Not Given HS CARMEL Cefepime HCl 2 gm/ Sodium 100 mls @ 200 mls/hr 03/28/20 21:00 03/30/20 20:47 Chloride IVPB 100 mls 2100 CARMEL Administration Metronidazole 500 mg/ Device 100 mls @ 100 mls/hr 03/30/20 01:00 03/31/20 08:42 IVPB 100 mls 0100,0900,1700 CARMEL Administration Levofloxacin 500 mg 03/28/20 06:00 03/31/20 05:32 Levofloxacin 500 Mg Tab PO 500 mg 0600 CARMEL Administration Losartan Potassium 100 mg 03/24/20 09:00 03/31/20 08:20 Losartan 25 Mg Tab PO 100 mg DAILY CARMEL Administration Morphine Sulfate 2 mg 03/23/20 10:44 03/29/20 13:29 Morphine 2 Mg/Ml Vial SLOW IVP 2 mg Q4H PRN Administration Pain Pantoprazole Sodium 40 mg 03/24/20 09:00 03/31/20 08:20 Pantoprazole 40 Mg Tab PO 40 mg DAILY CARMEL Administration Rivaroxaban 15 mg 03/24/20 09:00 03/30/20 08:28 Rivaroxaban 15 Mg Tab PO 15 mg Q2DAYS CARMEL Administration Sodium Chloride 10 ml 03/23/20 09:00 03/31/20 08:21 Flush - Normal Saline 10 Ml Syringe IVF 10 ml Q12HR CARMEL Administration Spironolactone 25 mg 03/23/20 21:00 03/31/20 08:21 Spironolactone 25 Mg Tab PO 25 mg BID CARMEL Administration Hospitalist Exam Vitals: Vital Signs (12 hours) Temp Pulse Resp BP Pulse Ox 03/31/20 08:14 97.9 F 87 22 H 175/91 H 99 Weight Admit Weight 116 lb 2 oz Weight 114 lb 15.255 oz General Appearance: NAD, awake alert General - other findings: appears very frail Eye: PERRL, anicteric sclera ENT: normocephalic atraumatic, no oropharyngeal lesions Neck: no JVD Heart: RRR, no murmur, no gallops, no rubs Respiratory: CTAB, no wheezes, no rales, no ronchi, no tachypnea Gastrointestinal: soft, non-tender, non-distended, normal bowel sounds Extremities: no cyanosis, no clubbing, no edema Skin: normal turgor, no lesions, no rashes Skin - other findings: LL wound, covered in bandaid Neurological: cranial nerve grossly intact, normal sensation to touch, no we akness, no new deficit Musculoskeletal: normal tone, normal strength, no muscle wasting Psychiatric: normal affect, normal behavior, A&O x 3 Hosp A/P - Plan Tib fib x ray 03/22: osteopenia, osteoarthritis left knee. Chest X ray 03/22: right sided pneumonia CTA chest: right renal mass Renal US: right renal cyst ChesT X ray 03/28: limited This is an 89 year old female who is sent to the hospital for generalized weakness and lethargy. She does not have a temp of 99.9 and was tachycardic. She is a chronic wound on her left lower extremity. Has been to the hospital fo r sepsis Sepsis secondary to left lower extremity cellulitis versus pneumonia - wound culture of her left wound shows Pseudomonas aeruginosa. Blood cultures are negative. Urine culture is negative. Chest x-ray shows a right lower lobe pneumonia -She was on vancomycin and cefepime from 03/23-03/26. Antibiotics were discontinued and restarted on 03/28 (vanc, cefepime, flagyl and levaquin). Her WBC had increased to 32 and has now improved to 14 - will discontinue vancomycin and levaquin for now. Continue cefepime due to concurrent pseudomonas UTI. ID was consulted yesterday Hyponatremia -improved, sodium up to 135 Anemia - Hb 9.9 Right renal cyst - outpatient follow up Pulmonary fibrosis - continue close monitoring Rheumatoid arthritis - on plaquenil
--- NOTE | 2020-03-31 18:55 | CON ---
DATE OF CONSULTATION: 03/31/2020 REASON: Cellulitis recurrence. HISTORY OF PRESENT ILLNESS: 89-year-old with a history of coronary artery disease, hyperlipidemia, and hypertension as well as venous insufficiency and pulmonary fibrosis with developed erythema of the left foot at the beginning of January. She also takes chronic prednisone secondary to rheumatoid arthritis, so she was given clindamycin and reportedly improved in the outpatient setting. She developed some blisters and wounds that were managed initially with visiting nurse. Due to lack of improvement, she then scheduled an appointment with Ronit Rodriguez in [facility]. She was not taking any antimicrobials. The second time around when she came in with fever, erythema in the left lower extremity extending all the way to the knee at this time. She also was tachypneic, general malaise. No headaches. No seizure activity. No vomiting. No bleeding. No genitourinary symptoms. No diarrhea on arrival. PAST MEDICAL HISTORY: Coronary artery disease, rheumatoid arthritis on corticosteroids, hypertension, venous insufficiency, pulmonary fibrosis. SURGICAL HISTORY: Hip replacement, coronary artery bypass graft surgery, and laminectomy. SOCIAL HISTORY: Lives in town with one of her daughters. Never a smoker. Does not drink alcoholic beverages. ALLERGIES: PENICILLIN WITH RASH AND THROAT CLOSING AT THE AGE OF 20. CURRENT MEDICATIONS: 1. Inhalers. 2. Vitamin C. 3. Cefepime. 4. Cymbalta. 5. Neurontin. 6. Plaquenil. 7. Levofloxacin. 8. Cozaar. 9. Rivaroxaban or Xarelto. 10. Metronidazole. PHYSICAL EXAMINATION: VITAL SIGNS: T-max 100.4 two days ago. She is now afebrile. She is on room air and sating 99%. BP 170/90. GENERAL: Initial wound showed areas of hyperkeratosis and callus formation at the distal aspect of the right first toe and left first toe. She has areas of venous insufficiency with stasis dermatitis. In the left side, there is obvious erythema extending from the foot all the way to the knee. There are those areas of shallow ulcerations in medial aspect in number of 4 measuring about 2 cm, kind of oval shaped. Little bit of erythema in the lateral aspect of the left thigh and peripheral IV access. She is voiding in the diaper. HEENT: Some element of temporal wasting. Ocular movements conjugate. Conjunctivae are little bit pale. Oral cavity, still quite a few teeth remaining in place with some decay and gum disease. Oral mucosa is dry but no lesions. No jugular vein distention. LUNGS: With symmetric air entry. A few crackles here and there. No wheezing. HEART: Diminished heart sounds. Soft aortic murmur. No S3. Regular rate. ABDOMEN: Soft. Not distended or tender. No ascites. No bladder distention. No organomegaly. EXTREMITIES: No joint inflammatory activity noted. She is able to move extremities. Pulses 1+ in dorsalis pedis. No edema. Compared with admission, the erythema has improved significantly in the left side. She is awake, but listless and weak appearing and verbal output is kind of difficult to understand because of the weakness of her admission. LABORATORY DATA: White cell count was up to 32,000 down to 14.6, hemoglobin is 9.9, MCV 90, platelets 242 with 26% bands. She came in at 14,000 went down to 6.7 and it went up again to 32,000. Creatinine is 0.57. Urinalysis with 7 to 10 wbc's. Vancomycin trough is 17.9. SARS-CoV-2 was negative. Checked aeruginosa from the leg, broad susceptibility profile. The patient started on cefepime on March 22. Levofloxacin was added for some reason, I guess because of her white cell count elevation, on March 27 and then metronidazole started on March 27 and was maintained on March 30. Vancomycin was discontinued. IMAGING DATA: Renal ultrasound from March 23 with cystic right renal mass. Chest x-ray from 2 days ago with hypoinflated lungs, accentuation of pulmonary bronchovascular markings, not much else. She had a CT angio when she came in and it showed no pulmonary embolism and right renal mass which was evaluated by ultrasound. Tibia-fibula x-ray from admission, no acute findings. ASSESSMENT: Coronary artery disease, rheumatoid arthritis on low-dose steroids, venous insufficiency, recurrent cellulitis left lower extremity with ulcerations. DISCUSSION: In normal settings, beta-hemolytic streptococci are the most common culprits in the causation of lower extremity cellulitis, however, in the immunosuppressed setting such as hers, other organisms including gram-negative rods can play a role as well. I think that we can leave her on cefepime alone. She is having a diarrhea and a C difficile test has been ordered. She is certainly at high risk for it and may explain the exacerbation of the white cell count elevation a few days after admission. She got her 1st dose of COVID-19 vaccine in the middle of February and missed her 2nd dose because she had to be admitted, but she still has some level of protection, that is less of a concern, so just leave her on cefepime. Check C diff and then treat accordingly. For discharge planning, hopefully, a quinolone. She would probably be eligible for secondary prophylaxis with cephalexin 250 b.i.d. after resolution of this current event. Continuation of wound management with compression device/dressing under the supervision of [facility]. Job ID: [id number] [id number]
[2020-03-31] MEDS: Gabapentin 300 MG CAP PO SCH (20:39)
[2020-03-31] MEDS: Cefepime 2 GM in Sodium Chloride 0.9% 100 ML IVPB SCH (20:39)
[2020-03-31] MEDS: HYDROcodone/Acetaminophen 10/325 mg Tablet PO PRN (20:40)
[2020-03-31] MEDS: Atorvastatin Calcium 10 MG TAB PO SCH (20:40)
[2020-03-31] MEDS: Hydroxychloroquine Sulfate 200 MG TAB PO SCH (20:49)
[2020-04-01] MEDS: metroNIDAZOLE 500 MG in Premix Bag 1 BAG IVPB SCH ×2 (01:17→10:20)
[2020-04-01] MEDS ORDERED: Fish Oil 1,000 MG CAP ONE (08:38)
[2020-04-01] MEDS ORDERED: DULoxetine 30 MG CAP ONE (08:38)
[2020-04-01] MEDS ORDERED: Losartan 25 MG TAB ONE (08:38)
[2020-04-01] MEDS ORDERED: Spironolactone 25 MG TAB ONE (08:38)
[2020-04-01] MEDS ORDERED: Rivaroxaban 10 MG TAB ONE (08:38)
[2020-04-01] MEDS ORDERED: metroNIDAZOLE 500 MG/100 ML BAG ONE (08:38)
[2020-04-01] MEDS ORDERED: Cyanocobalamin (Vitamin B-12) 1,000 MCG TAB ONE (08:38)
[2020-04-01] MEDS ORDERED: Ascorbic Acid 500 mg Chewable Tablet ONE (08:38)
[2020-04-01] MEDS: Ascorbic Acid 500 mg Chewable Tablet PO SCH (10:17)
[2020-04-01] MEDS: Losartan 25 MG TAB PO SCH (10:17)
[2020-04-01] MEDS: Rivaroxaban 15 MG TAB PO SCH (10:17)
[2020-04-01] MEDS: Cyanocobalamin (Vitamin B-12) 1,000 MCG TAB PO SCH (10:17)
--- NOTE | 2020-04-01 14:36 | PDOC.HOSPP ---
- Subjective Encounter Date: 04/01/20 Encounter Time: 09:00 Subjective: F/u: cellulitis and pneumonia The patient ate some solid breakfast this morning and did well. She wants to go home, however family decided to stay here due to the weather - Objective Vital Signs & Weight: Vital Signs (12 hours) Temp Pulse Resp BP Pulse Ox 04/01/20 07:59 97.8 F 77 24 H 175/82 H 97 Weight Admit Weight 116 lb 2 oz Weight 114 lb 15.255 oz I&O: 03/31/20 04/01/20 04/02/20 06:59 06:59 06:59 Intake Total 960 Balance 960 Result Diagrams: 03/31/20 09:36 03/31/20 09:36 Hospitalist ROS - Review of Systems Constitutional: denies: fever, chills - Medication Medications: Active Medications Generic Name Dose Route Start Last Admin Trade Name Freq PRN Reason Stop Dose Admin Acetaminophen 650 mg 03/22/20 18:41 03/28/20 20:22 Acetaminophen 325 Mg Tab PO 650 mg Q4H PRN Administration Headache/Fever/Mild Pain (1-3) Hydrocodone Bitart/Acetaminophen 1 tab 03/22/20 22:26 03/31/20 20:40 Hydrocodone/Acetaminophen 10/325 Mg Tablet PO 1 tab TID PRN Administration Pain Ascorbic Acid 500 mg 03/24/20 09:00 03/31/20 08:21 Ascorbic Acid 500 Mg Chewable Tablet PO 500 mg DAILY CARMEL Administration Atorvastatin Calcium 5 mg 03/23/20 21:00 03/31/20 20:40 Atorvastatin Calcium 10 Mg Tab PO 5 mg HS CARMEL Administration Cyanocobalamin 1,000 mcg 03/24/20 09:00 03/31/20 08:21 Cyanocobalamin (Vitamin B-12) 1,000 Mcg Tab PO 1,000 mcg DAILY CARMEL Administration Duloxetine HCl 30 mg 03/24/20 09:00 03/31/20 08:21 Duloxetine 30 Mg Cap PO 30 mg DAILY CARMEL Administration Fish Oil 1,000 mg 03/24/20 09:00 03/31/20 08:21 Fish Oil 1,000 Mg Cap PO 1,000 mg DAILY CARMEL Administration Gabapentin 300 mg 03/23/20 21:00 03/31/20 20:39 Gabapentin 300 Mg Cap PO 300 mg HS CARMEL Administration Guaifenesin 600 mg 03/24/20 16:40 03/24/20 17:38 Guaifenesin Sf Soln 200 Mg/10 Ml Udcup PO 600 mg Q12H PRN Administration Cough Hydralazine HCl 10 mg 03/23/20 18:50 03/26/20 14:18 Hydralazine 20 Mg/Ml Vial SLOW IVP 10 mg Q6H PRN Administration SBP Greater Than 170 Hydroxychloroquine Sulfate 200 mg 03/29/20 21:00 03/31/20 20:49 Hydroxychloroquine Sulfate 200 Mg Tab PO Not Given HS CARMEL Metronidazole 500 mg/ Device 100 mls @ 100 mls/hr 03/30/20 01:00 04/01/20 01:17 IVPB 100 mls 0100,0900,1700 CARMEL Administration Losartan Potassium 100 mg 03/24/20 09:00 03/31/20 08:20 Losartan 25 Mg Tab PO 100 mg DAILY CARMEL Administration Morphine Sulfate 2 mg 03/23/20 10:44 03/29/20 13:29 Morphine 2 Mg/Ml Vial SLOW IVP 2 mg Q4H PRN Administration Pain Pantoprazole Sodium 40 mg 03/24/20 09:00 03/31/20 08:20 Pantoprazole 40 Mg Tab PO 40 mg DAILY CARMEL Administration Rivaroxaban 15 mg 03/24/20 09:00 03/30/20 08:28 Rivaroxaban 15 Mg Tab PO 15 mg Q2DAYS CARMEL Administration Sodium Chloride 10 ml 03/23/20 09:00 03/31/20 20:41 Flush - Normal Saline 10 Ml Syringe IVF 10 ml Q12HR CARMEL Administration Spironolactone 25 mg 03/23/20 21:00 03/31/20 21:52 Spironolactone 25 Mg Tab PO 25 mg BID CARMEL Administration Hospitalist Exam Vitals: Vital Signs (12 hours) Temp Pulse Resp BP Pulse Ox 04/01/20 07:59 97.8 F 77 24 H 175/82 H 97 Weight Admit Weight 116 lb 2 oz Weight 114 lb 15.255 oz General Appearance: NAD, awake alert Eye: PERRL, anicteric sclera ENT: normocephalic atraumatic, no oropharyngeal lesions Neck: no JVD Heart: RRR, no murmur, no gallops, no rubs Respiratory: CTAB, no wheezes, no rales, no ronchi Gastrointestinal: soft, non-tender, non-distended, normal bowel sounds Extremities: no cyanosis, no clubbing, no edema Skin: normal turgor, no lesions, no rashes Hosp A/P - Plan Tib fib x ray 03/22: osteopenia, osteoarthritis left knee. Chest X ray 03/22: right sided pneumonia CTA chest: right renal mass Renal US: right renal cyst ChesT X ray 03/28: limited This is an 89 year old female who is sent to the hospital for generalized weakness and lethargy. She does not have a temp of 99.9 and was tachycardic. She is a chronic wound on her left lower extremity. Has been to the hospital for sepsis Sepsis secondary to left lower extremity cellulitis versus pneumonia - wound culture of her left wound shows Pseudomonas aeruginosa. Blood cultures are negative. Urine culture is negative. Chest x-ray shows a right lower lobe pneumonia -She was on vancomycin and cefepime from 03/23-03/26. Antibiotics were discontinued and restarted on 03/28 (vanc, cefepime, flagyl and levaquin). Her WBC had increased to 32 and has now improved to 14. Repeat CBC today pending -continue IV cefepime day 5. Will switch to oral fluoroquinolone on discharge to complete seven day course of antibiotics. After that discharge on cephalexin 250 mg bid for prophylaxis per ID . Hyponatremia -improved, sodium up to 135 Anemia - Hb 9.9 Right renal cyst - outpatient follow up Pulmonary fibrosis - continue close monitoring Rheumatoid arthritis - on plaquenil
[2020-04-01 14:39] LABS: Hemoglobin 9.5 g/dL (12.0-16.0); Mean Corpuscular HGB CONC 30.7 g/dL (32.0-36.0); Mean Corpuscular Hemoglobin 28.1 pg (27.0-31.0); Mean Corpuscular Volume 91.5 fL (78.0-98.0); Mean Platelet Volume 9.4 fL (7.4-10.4); Platelet Count 260 thou/uL (130-400); RBC Distribution Width 15.8 % (11.5-14.5); Red Blood Cell (RBC) Count 3.39 mill/uL (4.20-5.40); White Blood Cell (WBC) Count 10.2 thou/uL (4.8-10.8)
[2020-04-01 15:23] LABS: Anion Gap 9 mmol/L (10-20); BUN (Urea Nitrogen) 13 mg/dL (9.8-20.1); Calc. Creatinine Clearance 60 mL/min (70-130); Calcium 8.7 mg/dL (7.8-10.44); Carbon Dioxide 26 mmol/L (23-31); Chloride 103 mmol/L (98-107); Glucose 70 mg/dL (83-110); Potassium 3.2 mmol/L (3.5-5.1); Sodium 135 mmol/L (136-145)
[2020-04-01] MEDS: metroNIDAZOLE 500 MG TAB PO SCH ×2 (16:08→20:42)
[2020-04-01] MEDS: Fish Oil 1,000 MG CAP PO SCH (16:41)
[2020-04-01] MEDS: DULoxetine 30 MG CAP PO SCH (16:41)
[2020-04-01] MEDS: Spironolactone 25 MG TAB PO SCH ×2 (16:42→20:43)
[2020-04-01] MEDS: Gabapentin 300 MG CAP PO SCH (20:43)
[2020-04-01] MEDS: Atorvastatin Calcium 10 MG TAB PO SCH (20:43)
[2020-04-01] MEDS: Hydroxychloroquine Sulfate 200 MG TAB PO SCH (20:44)
[2020-04-01] MEDS ORDERED: Cefepime 2 GM in Sodium Chloride 0.9% 100 ML IVPB SCH (21:00)
[2020-04-01] MEDS ORDERED: Cefdinir 300 MG CAP PO SCH (21:00)
[2020-04-02 07:35] VITALS: BP 174/81; TEMP 97.8
[2020-04-02] MEDS: Ascorbic Acid 500 mg Chewable Tablet PO SCH (09:18)
[2020-04-02] MEDS: DULoxetine 30 MG CAP PO SCH (09:18)
[2020-04-02] MEDS: Fish Oil 1,000 MG CAP PO SCH (09:18)
[2020-04-02] MEDS: metroNIDAZOLE 500 MG TAB PO SCH ×2 (09:18→14:43)
[2020-04-02] MEDS: Cyanocobalamin (Vitamin B-12) 1,000 MCG TAB PO SCH (09:18)
[2020-04-02] MEDS: Spironolactone 25 MG TAB PO SCH (09:19)
[2020-04-02] MEDS: Losartan 25 MG TAB PO SCH (09:27)
[2020-04-02] MEDS ORDERED: Potassium Chloride 20 MEQ TAB PO SCH (09:45)
[2020-04-02 14:09] VITALS: BMI 24.0
[2020-04-02] MEDS: Acetaminophen 325 MG TAB PO PRN (14:43)
--- NOTE | 2020-04-02 15:15 | PRG ---
DATE OF SERVICE: 04/02/2020 SUBJECTIVE: Has a little bit of dyspnea at rest. She was a bit tachypneic. No chest pain. No cough. A little bit of abdominal pain in the left upper quadrant, mild. She is voiding in the diaper. No dysuria. Legs are not bothering her much. OBJECTIVE: VITAL SIGNS: The temperature has been normal for the past few days and BP 170/80, heart rate 87, respirations 18, and O2 saturation 99. GENERAL: Chronically ill appearing; appears a little bit depressed. LUNGS: Chronic crackles secondary to pulmonary fibrosis. HEART: S1 and S2. ABDOMEN: Soft, nondistended. No tenderness. No bladder distention. The left leg has a cellulitic process that has pretty much resolved. The wounds are still there, same appearance. LABORATORY DATA: White cell count is down to 10.2, hemoglobin 9.5, platelets 260. Sodium 135 creatinine 0.52. Microbiology with no new findings. The patient is still having diarrhea and a C difficile test has not yet been resulted. Awaiting on that. ASSESSMENT/DISCUSSION: Coronary artery disease, rheumatoid arthritis, on low-dose steroids, venous insufficiency, recurrent cellulitis of the left lower extremity with ulcerations, probably from venous insufficiency. She has diarrhea now and we need to rule out Clostridium difficile before she goes home on oral quinolone, and after the completion of the outpatient therapy, then she can switch to prophylactic Keflex 250 b.i.d. Continuation of wound management. Job ID: [id number]
[2020-04-02] MEDS ORDERED: Vancomycin HCl 25 MG/ML Oral PO SCH (18:00)
--- NOTE | 2020-04-02 21:48 | PDOC.DS.DS ---
Provider Date of Admission: 03/22/20 17:12 Date of Discharge: 04/02/20 Admitting Provider: Theodore Cerda MD Consultations: Infectious Disease (Dr. Noyola) Primary Care Physician: Zena Downing MD Course Hospital Course: Discharge Diagnoses: 1. Sepsis secondary to cellulitis and pneumonia 2. C diff infection 3. Hyponatremia 4. Hypokalemia 5. Dysphagia 6. Renal Cyst Brief HPI; This is an 89 year old female with chronic ulcers in her left leg wh o presented to the hospital with fever, lethargy and somnolence. According to the daughter, she also had increasing erythema surrounding her wounds on her left leg. When she presented to the ER, she had a temp of 102.7, heart rate of 115 and a WBC of 14. UA was negative. Chest Xray showed right sided pneumonia. SHe tested negative for COVID and flu. The patient was admitted for sepsis workup Sepsis secondary to cellulitis vs pneumonia vs C diff: the patient originally received vancomycin and cefepime until 03/26. Wound cultures were drawn and grew pseudomonas, but blood cultures were negative. Antibiotics were discontinued on 03/26, but on 03/28, she spiked a temp to 100.4 and her WBC increased to 26. She was restarted on cefepime, flagyl, and levaquin by the previous hospitalist. Repeat chest Xray showed no changes and repeat UA was normal. On 03/29, her WBC increased to 32. Vancomycin and levaquin were discontinued due to clinical improvement in her cellulitis and respiratory symptoms and her leukocytosis improved to 10. C diff was ordered 03/29 due to diarrhea as well, but she had no further bowel movements until 04/02, so nursing was unable to collect it until then. Unfortunately, she tested positive for C diff, so she will be discharged with vancomycin for ten days. She will also be discharged with flagyl for four more days to finish her treatment for pneumonia. Dr. Noyola was consulted and did recommend cephalex 250 mg bid for prophylaxis of her cellulitis for a year, but I told family to hold off given her C diff infection and follow up with Dr. Noyola. She should get a repeat chest X ray in 6 weeks. Hypokalemia: the patient had a potassium of 3.2. Repeat BMP in a week is recommended. Renal cyst: the patient had renal mass on CTA thorax. Renal US confirmed renal cyst. Consider outpatient follow up. Dysphagia: speech therapy saw the patient and recommended a pureed diet. The patient did not like the taste of a pureed diet, so she was upgraded to a cho pped diet which she tolerated better accepting the risk of aspiration. She had no further aspiration events. Resuscitation Status: 03/22/20 18:41 Resuscitation Status Routine Resuscitation Status: DNAR: NO Resuscitation Discussed with: daughter Lab Results: 04/01/20 05:06 04/01/20 05:06 Abnormal Lab Results - Last 48 hrs 04/01/20 05:06: Sodium 135 L, Potassium 3.2 L, Anion Gap 9 L, Creatinine 0.52 L 04/01/20 05:06: RBC 3.39 L, Hgb 9.5 L, Hct 31.0 L, MCHC 30.7 L, RDW 15.8 H Microbiology - Entire Visit 04/02/20 11:05 Stool C. difficile GDH Antigen & Toxins - Final 04/02/20 11:05 Stool Clostridioides difficile Toxins A&B (PCR) - Final 04/02/20 11:05 Stoma Rapid Parasite Screen - Final 04/02/20 11:05 Stool Campylobacter Antigen Assay - Final 04/02/20 11:05 Stool Shiga Toxin Test - Final 03/30/20 21:00 Urine voided Urine Culture - Final NO GROWTH AT 48 HOURS 03/22/20 14:03 Venous blood - Right Arm Blood Culture - Final NO GROWTH IN 5 DAYS 03/22/20 13:33 Venous blood - Left Arm Blood Culture - Final NO GROWTH IN 5 DAYS 03/26/20 12:30 Stool - Formed Stool Occult Blood (CARO) - Final 03/22/20 13:43 Leg - Pending Bacterial Culture - Final Pseudomonas aeruginosa 03/22/20 15:13 Urine Straight Catheter Urine Culture - Final NO GROWTH AT 48 HOURS Vitals: Weight Admit Weight 116 lb 2 oz Weight 114 lb 15.255 oz Physical Exam: The patient was seen and examined on the day of discharge. General Appearance: NAD, awake alert Eye: PERRL, anicteric sclera ENT: normocephalic atraumatic, no oropharyngeal lesions Neck: supple, no JVD Respiratory: CTAB, no wheezes, no rales, no ronchi Cardiovascular: RRR, no murmur, no gallops, no rubs Gastrointestinal: soft, non-tender, non-distended, normal bowel sounds Extremities - other findings: left leg ulcer with open wound with no surrounding cellulitis Skin - other findings: venous stasis changes in lower extremities Neurological: cranial nerve grossly intact, normal sensation to touch, no weakness, no focal deficits, no new deficit Plan Prescriptions: metroNIDAZOLE [Flagyl] 500 mg PO Q8HR #9 tab Cephalexin 250 mg PO BID #14 tablet Levofloxacin [Levaquin] 750 mg PO DAILY #2 tab Vancomycin HCl 125 mg PO Q6H #40 capsule Home Medications: Medication Instructions Recorded Confirmed Type Ascorbic Acid [Vitamin C] 500 mg PO DAILY 03/22/20 03/22/20 History Atorvastatin Calcium [Lipitor] 5 mg PO HS 03/22/20 03/22/20 History Calcium Carbonate + Vit D 1 tab PO DAILY 03/22/20 03/22/20 History [Caltrate 600 + Vit D] DULoxetine [Cymbalta] 30 mg PO DAILY 03/22/20 03/22/20 History Gabapentin 300 mg PO HS 03/22/20 03/22/20 History HYDROcodone Bit/APAP 10/325 [[place]] 1 tab PO TID PRN 03/22/20 03/22/20 History Hydroxychloroquine Sulfate 200 mg PO HS 03/22/20 03/22/20 History [Plaquenil] Ipratropium/Albuterol Sulfate 3 ml NEB BID 03/22/20 03/22/20 History Losartan Potassium 100 mg PO DAILY 03/22/20 03/22/20 History Magnesium Oxide [Magnesium] 400 mg PO DAILY 03/22/20 03/22/20 History Mecobalamin [B12 Active] 1,000 mcg PO DAILY 03/22/20 03/22/20 History [place]-3 Fatty Acids/Fish Oil [Fish 1 cap PO DAILY 03/22/20 03/22/20 History Oil 1,200 mg Softgel] Pantoprazole [Protonix] 40 mg PO DAILY 03/22/20 03/22/20 History Rivaroxaban [Xarelto] 15 mg PO Q2DAYS 03/22/20 03/22/20 History Spironolactone 25 mg PO BID 03/22/20 03/22/20 History Ventolin HFA Inhaler 2 puff INH Q6HR PRN 03/22/20 03/22/20 History predniSONE [Prednisone] 5 mg PO DAILY 03/22/20 03/22/20 History Cephalexin 250 mg PO BID #14 tablet 04/01/20 Rx Levofloxacin [Levaquin] 750 mg PO DAILY #2 tab 04/01/20 Rx metroNIDAZOLE [Flagyl] 500 mg PO Q8HR #9 tab 04/01/20 Rx Vancomycin HCl 125 mg PO Q6H #40 capsule 04/02/20 Rx Allergies: Penicillins Allergy (Verified 03/22/20 18:41) Discharge Instructions:: You were diagnosed with cellulitis. Wound culture grew Pseudomonas. You r esponded with cefepime and flagyl and vancomycin. Please continue levaquin and flagyl for 2-3 three more days to treat pneumonia and cellulitis. After that take keflex 250 mg twice daily for a week until you follow up with Dr. Noyola. Follow up with your primary care doctor in a week. Get a repeat chest Xray in 6 weeks. Get a repeat CBC in a week, last WBC was 14. Continue with wound care. Activity:: Activity as Tolerated Nourishment:: Heart Healthy Diet Referrals: Reese Noyola MD [Active] - Zena Downing MD [Primary Care Provider] - 04/02/20 11:30 am () Disposition: HOME Quality CORE MEASURES:: N/A
--- NOTE | 2020-04-03 15:18 | EKG ---
Test Reason : STAT Blood Pressure : / mmHG Vent. Rate : 111 BPM Atrial Rate : 111 BPM P-R Int : 134 ms QRS Dur : 126 ms QT Int : 368 ms P-R-T Axes : 034 035 033 degrees QTc Int : 500 ms Sinus tachycardia with Premature atrial complexes Possible Left atrial enlargement Right bundle branch block Anteroseptal infarct (cited on or before 22-MAR-2020) T wave abnormality, consider lateral ischemia Abnormal ECG When compared with ECG of 22-MAR-2020 13:47, (Unconfirmed) Premature atrial complexes are now Present Criteria for Inferior infarct are no longer Present Questionable change in initial forces of Septal leads T wave inversion no longer evident in Inferior leads Confirmed by REGAN LUEVANO (2) on 04/03/2020 3:17:38 PM Referred By: SAUL Confirmed By:REGAN LUEVANO
== END 2020-04-02 18:15 | disposition home or self-care (01) | DRG 871 ==
LOC: ERS 13:16 → T4-B 17:12 → UNDOADMIN 17:14 → T4-B 17:14
PROVIDERS: ADMIT Internal Medicine; ATTEND Internal Medicine
DX: A41.52 Sepsis due to Pseudomonas (principal); J18.9 Pneumonia, unspecified organism; J96.01 Acute respiratory failure with hypoxia; E87.1 Hypo-osmolality and hyponatremia; L03.116 Cellulitis of left lower limb; A04.72 Enterocolitis due to Clostridium difficile, not specified as recurrent; N39.0 Urinary tract infection, site not specified; L97.929 Non-pressure chronic ulcer of unspecified part of left lower leg with unspecified severity; I87.312 Chronic venous hypertension (idiopathic) with ulcer of left lower extremity; L97.222 Non-pressure chronic ulcer of left calf with fat layer exposed; L97.822 Non-pressure chronic ulcer of other part of left lower leg with fat layer exposed; I25.10 Atherosclerotic heart disease of native coronary artery without angina pectoris; E78.5 Hyperlipidemia, unspecified; I10 Essential (primary) hypertension; D64.9 Anemia, unspecified; I87.2 Venous insufficiency (chronic) (peripheral); J84.10 Pulmonary fibrosis, unspecified; N28.1 Cyst of kidney, acquired; Z20.822 Contact with and (suspected) exposure to COVID-19; M06.9 Rheumatoid arthritis, unspecified; R13.10 Dysphagia, unspecified; E87.6 Hypokalemia; Z95.1 Presence of aortocoronary bypass graft; Z88.0 Allergy status to penicillin; L97.522 Non-pressure chronic ulcer of other part of left foot with fat layer exposed; L89.890 Pressure ulcer of other site, unstageable; E78.2 Mixed hyperlipidemia; I50.9 Heart failure, unspecified; L89.109 Pressure ulcer of unspecified part of back, unspecified stage; R60.0 Localized edema; I11.0 Hypertensive heart disease with heart failure
CPT/HCPCS: 0240U; 11042; 36415; 36416; 71045; 71275; 76770; 80048; 80053; 80202; 81001; 81003; 82274; 83605; 85025; 85027; 87040; 87045; 87046; 87070; 87077; 87081; 87086; 87186; 87205; 87324; 87328; 87329; 87427; 87449; 87493; 93005; 93010; 94640; 96365; 96367; 99213; 99292; G0463; J0360; J0692; J1940; J2270; J2405; J2550; J3370; J3490; J7050; J7620; Q9967